=== PATIENT | male | born 1930 | race Caucasian/White ===

== ENCOUNTER 2017-11-24 01:12 | Emergency (ER) | payer MEDICARE, OTHER ==
[2017-11-24 02:10] LABS: #Eosinphils 0.2 thou/uL (0.0-0.7); #Lymphocytes 1.7 thou/uL (1.20-3.40); #Monocytes 0.7 thou/uL (0.11-0.59); #Neutrophils 8.5 thou/uL (1.40-6.50); %Basophils 0.3 % (0.0-1.0); %Eosinophils 1.9 % (0.0-10.0); %Lymphocytes 15.1 % (21.0-51.0); %Monocytes 6.1 % (0.0-10.0); %Neutrophils 76.5 % (42.0-75.0); Hemoglobin 15.7 g/dL (14.0-18.0); Mean Corpuscular HGB CONC 33.8 g/dL (32.0-36.0); Mean Corpuscular Hemoglobin 30.9 pg (27.0-31.0); Mean Corpuscular Volume 91.4 fL (78.0-98.0); Mean Platelet Volume 7.2 fL (7.4-10.4); Platelet Count 158 thou/uL (130-400); RBC Distribution Width 13.8 % (11.5-14.5); Red Blood Cell (RBC) Count 5.09 mill/uL (4.70-6.10); White Blood Cell (WBC) Count 11.1 thou/uL (4.8-10.8)
[2017-11-24 02:32] LABS: ALT (SGPT) 13 U/L (8-55); AST (SGOT) 14 U/L (5-34); Albumin 3.6 g/dL (3.4-4.8); Alkaline Phosphatase 80 U/L (40-150); Anion Gap 14 mmol/L (10-20); BUN (Urea Nitrogen) 31 mg/dL (8.4-25.7); Bilirubin, Total 0.6 mg/dL (0.2-1.2); Calc. Creatinine Clearance 0 mL/min (70-130); Calcium 9.2 mg/dL (7.8-10.44); Carbon Dioxide 21 mmol/L (23-31); Chloride 105 mmol/L (98-107); Estimated GFR-MDRD 50; Globulin 2.9 g/dL (2.4-3.5); Glucose 196 mg/dL (83-110); Potassium 3.6 mmol/L (3.5-5.1); Protein, Total 6.5 g/dL (5.8-8.1); Sodium 136 mmol/L (136-145)
[2017-11-24] MEDS ORDERED: hydrALAZINE 20 MG/ML VIAL ONE (02:32)
[2017-11-24 02:34] LABS: CKMB 2.5 ng/mL (0-6.6); Troponin I 0.024 ng/mL (< 0.028)
--- NOTE | 2017-11-26 12:09 | EKG ---
Test Reason : Blood Pressure : / mmHG Vent. Rate : 048 BPM Atrial Rate : 048 BPM P-R Int : 188 ms QRS Dur : 092 ms QT Int : 434 ms P-R-T Axes : 055 -14 069 degrees QTc Int : 387 ms Marked sinus bradycardia Abnormal ECG Confirmed by JOSSE NUNN ([id number]), photographic editor AMBAR TORRE ([id number]) on 11/26/2017 12:09:27 PM Referred By: Confirmed By:JOSSE NUNN
== END 2017-11-24 05:13 | disposition home or self-care (01) ==
LOC: ERS 01:12
DX: I10 Essential (primary) hypertension (principal); I25.10 Atherosclerotic heart disease of native coronary artery without angina pectoris; E11.9 Type 2 diabetes mellitus without complications; E78.5 Hyperlipidemia, unspecified; Z79.899 Other long term (current) drug therapy
CPT/HCPCS: 36415; 80053; 82553; 83880; 84484; 85025; 93005; 96374; 96376; J0360

== ENCOUNTER 2019-04-08 09:25 | Inpatient (IN) | payer MEDICARE ==
[2019-04-08 10:26] LABS: Bacteria/HPF 4+ HPF (None Seen); Bilirubin Negative (Negative); Blood, Urine 2+ (Negative); Clarity Turbid (Clear); Glucose, Urine (Dipstick) Normal (Negative); Leukocyte 500 Leu/uL (Negative); Nitrite 1+ (Negative); Protein, Urine (Dipstick) 30 mg/dL (Neg-Trace); RBC/HPF 21-50 HPF (0-3); Squamous Epithelial 0-3 HPF (0-3); Urobilinogen Normal mg/dL (Less than 2); WBC/HPF Greater than 50 HPF (0-3)
[2019-04-08 11:05] LABS: Band 2 % (5-11); Hemoglobin 14.8 g/dL (14.0-18.0); Lymphocytes 4 % (21-51); MDiff Complete? YES; Mean Corpuscular HGB CONC 32.4 g/dL (32.0-36.0); Mean Corpuscular Hemoglobin 30.3 pg (27.0-31.0); Mean Corpuscular Volume 93.5 fL (78.0-98.0); Mean Platelet Volume 7.4 fL (7.4-10.4); Monocytes 4 % (0-10); Neutrophil 89 % (42-75); Platelet Count 243 thou/uL (130-400); RBC Distribution Width 13.5 % (11.5-14.5); Red Blood Cell (RBC) Count 4.89 mill/uL (4.70-6.10); White Blood Cell (WBC) Count 21.2 thou/uL (4.8-10.8)
[2019-04-08] MEDS ORDERED: Piperacillin/Tazobactam 4.5 GM VIAL ONE (11:22)
--- NOTE | 2019-04-08 11:33 | ULT ---
US Testicular W Doppler HISTORY: Left-sided testicular pain. COMPARISON: None. FINDINGS: Real-time imaging of the right and left testes were performed. The right testicle measures 2.6 cm and the left testicle 3.1 cm in size. There are small calcifications associated with both testes suggestive of testicular microlithiasis. No testicular mass. There is a complex fluid collecti on which is mainly medial to the left testicle, this could represent a complex hydrocele but is somewhat unusual in location for this. The right epididymis is normal in appearance. The head of the left epididymis appears normal. Along t he inferior margin of the left testicle is soft tissue density with increased flow. I think it is unlikely that this would represent the tail of the epididymis, given the normal appearance of the hea d region. Although it does not peristalse I am concerned this is possibly a hernia. Doppler evaluation with spectral analysis: Normal flow shown to both testes and head of epididymal re gions. IMPRESSION: 1. No evidence of testicular torsion. 2. There is a complex fluid collection which is mainly medial to the left testicle but probably still represents a complex left hydrocele. 3. Soft tissue density which is inferior to the left testicle and shows increased flow. Although no p eristalsis is seen I am concerned that this may indicate that there is a hernia. I would suggest a CT of the pelvis could be performed for assessment, this should extend low enough to include the enti re testicle region.
[2019-04-08 11:37] LABS: Anion Gap 11 mmol/L (10-20); BUN (Urea Nitrogen) 32 mg/dL (8.4-25.7); Calc. Creatinine Clearance 0 mL/min (70-130); Calcium 8.8 mg/dL (7.8-10.44); Carbon Dioxide 22 mmol/L (23-31); Chloride 108 mmol/L (98-107); Estimated GFR-MDRD 52; Glucose 178 mg/dL (83-110); Potassium 3.9 mmol/L (3.5-5.1); Sodium 137 mmol/L (136-145)
[2019-04-08] MEDS ORDERED: Morphine 4 MG/ML VIAL SLOW IVP PRN (12:01)
[2019-04-08] MEDS ORDERED: Mag-Al 1200 mg/1200 mg/30 ML UDCUP PO PRN (12:01)
[2019-04-08] MEDS ORDERED: Morphine 2 MG/ML SYRINGE SLOW IVP PRN (12:01)
[2019-04-08] MEDS ORDERED: Phenazopyridine HCl 97.5 MG TABLET PO PRN (12:01)
[2019-04-08] MEDS ORDERED: HYDROcodone/Acetaminophen 5/325 mg Tablet PO PRN (12:01)
[2019-04-08] MEDS ORDERED: Dextrose 50 % In Water 50 ML SYRINGE IV PRN (12:04)
[2019-04-08] MEDS ORDERED: Insulin Regular 300 UNITS/3 ML VIAL SC PRN (12:04)
[2019-04-08] MEDS ORDERED: Dextrose 5% in Water 1,000 ML IV PRN ×2 (12:04→14:38)
[2019-04-08] MEDS ORDERED: Sodium Chloride 0.9% 1,000 ML IV SCH (12:15)
[2019-04-08 12:43] LABS: Hemoglobin A1c 8.6 % (4.0-6.0)
--- NOTE | 2019-04-08 13:59 | CON ---
DATE OF CONSULTATION: 04/08/2019 REFERRING PHYSICIAN: Dr. Lynch with hospitalist regarding left epididymo-orchitis. REASON FOR CONSULTATION: Left epididymo-orchitis, dysuria. HISTORY OF PRESENT ILLNESS: Mr. De La Cruz is a pleasant 88-year-old male with history of hypertension, diabetes, coronary artery disease, who presents with 1- week history of dysuria. He states that this was treated by his PCP with an antibiotic that is unknown. He did have improvement of his dysuria, however, after cessation of antibiotic therapy, dysuria recurred. Subsequently, he developed left scrotal swelling, therefore presents to the emergency room. Son apparently was at bedside, however, no longer present. The patient is a reliable historian, provides his own subjective history. He denies obvious obstructive urinary symptoms, however, of the recent, he has had worsening nocturia every 30 minutes. He denies sensation of incomplete void or gross hematuria, prior urologic assessment. He is retired, lives in a private residence with his son. PAST MEDICAL HISTORY: Includes coronary artery disease, status post cardiac stent, diabetes in which his most recent A1c was 8.4 with his PCP, hyperlipidemia, hypertension. 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 Psychiatric, none. SOCIAL HISTORY: Negative. REVIEW OF SYSTEMS: A 10-point review of systems as above, otherwise noncontributory. PHYSICAL EXAMINATION: VITAL SIGNS: Blood pressure 120/66, pulse 121, respirations 22, temperature 98.8, appears hemodynamically stable. GENERAL: The patient is in no acute distress. HEENT: Unremarkable. HEART: Regular rate. LUNGS: Clear. ABDOMEN: Morbidly obese, right upper quadrant incision consistent with open cholecystectomy. Morbidly obese. No suprapubic tenderness is grossly appreciated. : Uncircumcised meatus, in which foreskin retracts easily, there are no gross lesions of concern. Evidence of some balanitis, however, foreskin retracts with ease. Meatus is grossly unremarkable. Testes are descended. There is hyperemia/erythema of his scrotal skin bilaterally, left greater than right, consistent with epididymo-orchitis. There is no fluctuance, mild pitting edema is noted. Tender on palpation, mild fixation of the testes, however, this is minimal. Digital rectal exam gently demonstrates SUN about 35 to 40 g with no discrete nodularity. EXTREMITIES: No cyanosis, clubbing, or edema. I did have the patient void, in which he voided about 300 mL of yellow concentrated urine. A 16-Cymro Johnson catheter was gently passed without any resistance with minimal PVR of 50 mL, which the urine does demonstrate some sedimentous debris consistent with cystitis. PERTINENT LABORATORY AND IMAGING: White count of 21, hemoglobin 14, platelet 243, 89 segs, no significant bandemia. In 2016, his INR was 2.2, PTT of 40.4. Today , his creatinine is 1.3, prior history of creatinine in 2013, 1.8. UA on arrival demonstrates yellow turbid urine, 30 of protein, 2+ bacteria, 1+ nitrite, 500 leukocytes, 21 to 50 rbc's, greater than 50 wbc, 0 to 3 epithelials, 4+ bacteria. Urine culture and blood culture obtained by the ER. Vancomycin and Zosyn provided by ER physician. Scrotal ultrasound: No evidence of testicular torsion. Complex fluid medial aspect of the left testes consistent with complex hydrocele. Possibility of hernia of this area. I did review the images myself as well as discussing results with radiologist of record. No evidence of scrotal testicular abscess. As physical exam demonstrates no evidence of inguinal hernia, CT of the pelvis is not recommended. IMPRESSION AND PLAN: Mr. De La Cruz is an 88-year-old morbidly obese male with history of diabetes, hypertension, coronary artery disease, hyperlipidemia, presents with urinary tract infection, left epididymo-orchitis, scrotal ultrasound which I reviewed myself demonstrates no evidence of torsion, complex fluid collection in the left testicle, there was concern that maybe this is a hernia. However, physical exam does not demonstrate evidence of inguinal hernia of concern, it is likely a complex hydrocele. Nevertheless, the treatment is same with broad-spectrum antibiotic therapy until culture can be finalized. Recommend Flomax 0.4 mg one p.o. daily, aggressive IV fluid, strict control of his diabetes is imperative. The patient to be admitted to the medical floor. will follow. Job ID: [id number] [facility]
[2019-04-08] MEDS ORDERED: Ondansetron PF 4 MG/2 ML Vial IVP PRN (14:38)
[2019-04-08] MEDS ORDERED: Acetaminophen 325 MG TAB PO PRN (14:38)
[2019-04-08] MEDS ORDERED: Dextrose 50% Abboject 50 ML SYRINGE SLOW IVP PRN (14:38)
[2019-04-08] MEDS ORDERED: HumaLOG 300 UNITS/3 ML VIAL SC PRN ×2 (14:38)
[2019-04-08] MEDS ORDERED: Guaifenesin DM 100-10/5 ML UDCUP PO PRN (14:38)
[2019-04-08] MEDS ORDERED: Bisacodyl 10 MG SUPP PR PRN (14:38)
[2019-04-08] MEDS ORDERED: Senokot S 8.6-50 MG TAB PO PRN (14:38)
[2019-04-08] MEDS: Sodium Chloride 0.9% 1,000 ML IV SCH (14:56)
--- NOTE | 2019-04-08 15:14 | HP ---
REASON FOR ADMISSION: Left epididymo-orchitis, acute kidney injury, sepsis. HISTORY OF PRESENTING ILLNESS: The patient gives history of being treated for urinary tract infection 2-1/2 weeks ago. He was prescribed an antibiotic by Dr. Esposito, his primary care physician at [facility]. He took it for a week and felt better. From last 3 days, the patient started to have burning urination. On , he felt like his left testicle was feeling funny. On Tuesday and Tuesday, this got swollen, became painful with pain radiating to left thigh as well. It also became pink, and the patient got concerned that he was getting infected and summoned the EMS to come to ER. No fever as such at home. The patient says he has not had this before. PAST MEDICAL AND SURGICAL HISTORY: History of coronary artery disease with 1 or 2 stents. The patient does not recall the exact number. In the past, diabetes mellitus type 2, hypertension, dyslipidemia, amputation of right upper extremity up to above elbow in an industrial accident, appendectomy, cholecystectomy. CURRENT MEDICATIONS: Please note, the patient does not recall all his medication. He knows he is taking glipizide unknown dose, Trulicity which was recently started for diabetes, unknown hypertension medication, simvastatin. His son is trying to bring his home medications, and will follow up on that. ALLERGIES: NO KNOWN DRUG ALLERGIES. PERSONAL HISTORY: Does not abuse alcohol or drugs. No history of smoking. FAMILY HISTORY: Mother at the age of 62. She has had history of aneurysm. Father at the age of 76 years. He has had history of one lung chronic kidney disease and developed pneumonia, went into coma and never recovered. The patient stays with his son. He ambulates by himself. CODE STATUS: The patient wants to be do not attempt to resuscitate. His POA is his daughter, Ms. Shobha Buenrostro, per the patient. REVIEW OF SYSTEMS: CONSTITUTIONAL: Negative for weight loss or gain, ability to conduct usual activities. SKIN: Negative for rash, itching. EYES: Negative for double vision, pain. ENT/MOUTH: Negative for nose bleeding, neck stiffness, pain, tenderness. CARDIOVASCULAR: Negative for palpitations, dyspnea on exertion, orthopnea. RESPIRATORY: Negative for shortness of breath, wheezing, cough, hemoptysis, fever or night sweats. GASTROINTESTINAL: Negative for poor appetite, abdominal pain, heartburn, nausea, vomiting, constipation, or diarrhea. GENITOURINARY: Negative for urgency, frequency, dysuria, nocturia. MUSCULOSKELETAL: Negative for pain, swelling. NEUROLOGIC/PSYCHIATRIC: Negative for anxiety, depression. ALLERGY/IMMUNOLOGIC: Negative for skin rash, bleeding tendency. PHYSICAL EXAMINATION: GENERAL: The patient is an 88-year-old male, who is currently not in any acute distress. VITAL SIGNS: Blood pressure 126/66, pulse 120 per minute, respiratory rate 22 per minute, temperature 98.8 degrees Fahrenheit, saturating 96% on room air. NECK: Supple. No elevated JVD. HEENT: Eyes; extraocular muscles intact. Pupils reacting to light. Oral cavity, mucous membranes are dry. No exudates or congestion. CARDIOVASCULAR: S1 and S2 heard. Regular rhythm. RESPIRATORY: Air entry 1+ bilateral. No rales or rhonchi. ABDOMEN: Soft. Bowel sounds heard. No tenderness, rigidity, or guarding. : The patient has severe tenderness on elevating the testicles or the scrotal back. His scrotum is erythematous, has edema as well. EXTREMITIES: Lower extremity has 1+ peripheral edema. No calf tenderness. VASCULAR: Peripheral pulses 1+ bilateral. No ischemic ulcerations or gangrene. CENTRAL NERVOUS SYSTEM: No gross focal deficits noted. The patient is alert, awake, and oriented well. PSYCHIATRIC: The patient's mood is euthymic. No hallucinations or delusions. IMAGING STUDIES: Scrotal ultrasound done showed no evidence of testicular torsion. There is complex fluid collection, which is medial to the left testicle and probably represents complex left hydrocele. There is soft tissue density, which is inferior to the left testicle and shows increased flow. There is possible suspicion of this being a hernia. LABORATORY DATA: UA shows signs of UTI. HbA1c 8.6. Lactic acid 1.2. BUN 32, creatinine 1.3, serum glucose 178, serum bicarb 22. White count of 21, H and H 14 and 45, platelet count 243, with 89% neutrophils, 2% bands. CLINICAL IMPRESSION AND PLAN: The patient will be admitted to medical floor for sepsis, epididymo-orchitis. The patient will be gently hydrated with normal saline at 100 mL per hour. Blood and urine cultures have been obtained in the ER. He has been placed on vancomycin and Zosyn. Dr. Hilario has evaluated the patient in the ER. He is also on Flomax 0.4 mg daily. We will continue him on a low-dose Zocor, low-dose Lopressor, glipizide 5 mg twice daily, and regular insulin moderate sliding scale for now. We will ascertain his home medications and likely start them. He is also on Azo q.8 hourly p.r.n. for burning urination. Morphine and [place] p.r.n. for pain. We will continue to closely monitor him on medical floor. PT and OT evaluations will be requested for early ambulation. Job ID: [id number]
[2019-04-08 15:30] VITALS: BMI 34.3
[2019-04-08] MEDS ORDERED: Prevnar 13-Val Conj/PF 0.5 ML SYRINGE IM ONE (16:00)
[2019-04-08] MEDS: glipiZIDE 5 MG TAB PO SCH (16:09)
[2019-04-08] MEDS: Piperacillin/Tazobactam 3.375 GM in Sodium Chloride 0.9% 100 ML IVPB SCH (16:56)
[2019-04-08] MEDS: HYDROcodone/Acetaminophen 5/325 mg Tablet PO PRN (16:56)
[2019-04-08] MEDS: Metoprolol Tartrate 25 MG TAB PO SCH (21:00)
[2019-04-08] MEDS ORDERED: Vancomycin HCl 1 GM in Premix Bag 1 BAG IVPB SCH (21:00)
[2019-04-08] MEDS: Atorvastatin Calcium 10 MG TAB PO SCH (22:24)
[2019-04-08] MEDS: Docusate 100 MG CAP PO SCH (22:24)
[2019-04-08] MEDS: Famotidine 20 MG TAB PO SCH (22:24)
[2019-04-09] MEDS: Piperacillin/Tazobactam 3.375 GM in Sodium Chloride 0.9% 100 ML IVPB SCH ×5 (00:55→23:37)
[2019-04-09] MEDS: Sodium Chloride 0.9% 1,000 ML IV SCH ×2 (01:06→10:58)
[2019-04-09 06:01] LABS: #Eosinphils 0.1 thou/uL (0.0-0.7); #Lymphocytes 1.1 thou/uL (1.20-3.40); #Neutrophils 13.8 thou/uL (1.40-6.50); %Basophils 0.3 % (0.0-1.0); %Eosinophils 0.6 % (0.0-10.0); %Lymphocytes 6.8 % (21.0-51.0); %Monocytes 5.9 % (0.0-10.0); %Neutrophils 86.4 % (42.0-75.0); Hemoglobin 13.5 g/dL (14.0-18.0); Mean Corpuscular HGB CONC 31.9 g/dL (32.0-36.0); Mean Corpuscular Hemoglobin 30.3 pg (27.0-31.0); Mean Corpuscular Volume 95.1 fL (78.0-98.0); Mean Platelet Volume 7.4 fL (7.4-10.4); Platelet Count 205 thou/uL (130-400); RBC Distribution Width 13.5 % (11.5-14.5); Red Blood Cell (RBC) Count 4.44 mill/uL (4.70-6.10)
[2019-04-09 06:21] LABS: Anion Gap 11 mmol/L (10-20); BUN (Urea Nitrogen) 26 mg/dL (8.4-25.7); Calc. Creatinine Clearance 61 mL/min (70-130); Calcium 8.4 mg/dL (7.8-10.44); Carbon Dioxide 18 mmol/L (23-31); Chloride 112 mmol/L (98-107); Estimated GFR-MDRD 54; Glucose 184 mg/dL (83-110); Potassium 3.9 mmol/L (3.5-5.1); Sodium 137 mmol/L (136-145)
--- NOTE | 2019-04-09 07:19 | PRG ---
DATE OF SERVICE: 04/09/2019 SUBJECTIVE: Relates, he is feeling better, dysuria has improved. However, he continues to have scrotal discomfort as expected. Vital signs are stable. He is afebrile. On rounds, he appears to have some wheezing. Denies history of COPD or chest pain. Currently on Zosyn and vancomycin. OBJECTIVE: VITAL SIGNS: Afebrile, temperature 97.7, pulse 77, respiratory rate 20, oxygen saturation 97% on room air, and blood pressure is stable at 119/72. I's and O's; 1300 in, 350 of urine out. He is positive 950 mL. ABDOMEN: Morbidly obese, nontender, and nondistended. No CVA tenderness. GENITOURINARY: Stable exam. He does have continuing erythema of the scrotal skin consistent with epididymo-orchitis. Pitting edema is noted. However, no gross fluctuance or crepitus is appreciated. PERTINENT LABORATORY DATA: White count has decreased from 21,000 to 16,000, hemoglobin 13, platelet 205, segs 86, no significant bandemia. Renal function stable. Creatinine 1.2. Cultures are pending. IMPRESSION AND PLAN: 1. Mr. De La Cruz is an 88-year-old male with past medical history of coronary artery disease, diabetes, hyperlipidemia, who presents with urinary tract infection, left epididymo-orchitis. His leukocytosis improved with antibiotic therapy as dysuria is improved as well. I informed the patient that epididymo-orchitis takes couple of weeks for scrotal discomfort to resolve. Continue to monitor daily CBCs, follow up blood culture and urine culture results. When sensitivity finalized, we will transition to appropriate antibiotic regimen as an outpatient. 2. Intermittent wheezing, please check a PA and lateral chest x-ray. If needed, albuterol nebs would be prudent. Elevate scrotum while in bed. Job ID: [id number] [facility]
[2019-04-09] MEDS: Tamsulosin HCl 0.4 MG CAP PO SCH (08:08)
[2019-04-09] MEDS: glipiZIDE 5 MG TAB PO SCH (08:08)
[2019-04-09] MEDS: Docusate 100 MG CAP PO SCH ×2 (08:08→20:22)
[2019-04-09] MEDS: Metoprolol Tartrate 25 MG TAB PO SCH ×2 (08:09→20:22)
[2019-04-09] MEDS: Enoxaparin Sodium 40 MG/0.4 ML SYRINGE SC SCH (08:09)
[2019-04-09] MEDS: Famotidine 20 MG TAB PO SCH ×2 (08:10→20:22)
--- NOTE | 2019-04-09 10:23 | RAD ---
PA AND LATERAL VIEWS CHEST: Date: 04/09/19 HISTORY: Wheezing. FINDINGS/IMPRESSION: Comparison made with exam of 02/17/14. The heart size is mildly enlarged. There is mild prominence of the interstitial markings. No lobar co nsolidation, pneumothoraces, or pleural effusions are seen. There are degenerative changes in the spi ne. POS: [facility]
[2019-04-09] MEDS ORDERED: Vancomycin 1.5 GRAM/300 ML BAG 1.5 GM in Premix Bag 1 BAG IVPB SCH (12:00)
--- NOTE | 2019-04-09 16:27 | PDOC.HOSPP ---
- Subjective Encounter Date: 04/09/19 Encounter Time: 09:30 Subjective: feels better, still has pain in scrotal area has not ambulated yet - Objective Vital Signs & Weight: Vital Signs (12 hours) Temp Pulse Resp BP Pulse Ox 04/09/19 11:34 98.1 F 81 18 153/82 H 95 04/09/19 08:00 95 04/09/19 07:39 97.9 F 106 H 20 144/82 H 95 Weight Weight 225 lb 15.581 oz I&O: 04/08/19 04/09/19 04/10/19 06:59 06:59 06:59 Intake Total 1300 600 Output Total 350 Balance 950 600 Result Diagrams: 04/09/19 05:44 04/09/19 05:44 Additional Labs: Accuchecks 04/09/19 04/09/19 04/08/19 11:34 04:36 19:47 POC Glucose 290 H 167 H 234 H 04/08/19 15:53 POC Glucose 273 H Hospitalist ROS - Medication Medications: Active Medications Generic Name Dose Route Start Last Admin Trade Name Freq PRN Reason Stop Dose Admin Hydrocodone Bitart/Acetaminophen 2 tab 04/08/19 12:01 04/08/19 16:56 [place] 5/325 PO 2 tab Q4H PRN Administration Severe Pain (7-10) Atorvastatin Calcium 10 mg 04/08/19 21:00 04/08/19 22:24 Lipitor PO 10 mg HS JOSE Administration Docusate Sodium 100 mg 04/08/19 21:00 04/09/19 08:08 Colace PO 100 mg BID JOSE Administration Enoxaparin Sodium 40 mg 04/09/19 09:00 04/09/19 08:09 Lovenox SC 40 mg 0900 JOSE Administration Famotidine 20 mg 04/08/19 21:00 04/09/19 08:10 Pepcid PO 20 mg BID JOSE Administration Piperacillin Sod/Tazobactam 100 mls @ 200 mls/hr 04/08/19 18:00 04/09/19 11: 02 Sod 3.375 gm/ Sodium Chloride IVPB 100 mls Q6HR JOSE Administration Insulin Human Lispro 0 units 04/08/19 14:38 04/08/19 16:09 Humalog SC 6 unit .MODERATE SLIDING SC PRN Administration Moderate Correctional Scale Metoprolol Tartrate 12.5 mg 04/08/19 21:00 04/09/19 08:09 Lopressor PO 12.5 mg BID JOSE Administration Phenazopyridine HCl 195 mg 04/08/19 12:01 04/08/19 16:58 Azo Standard PO 195 mg Q8H PRN Administration Dysuria Tamsulosin HCl 0.4 mg 04/09/19 09:00 04/09/19 08:08 Flomax PO 0.4 mg DAILY JOSE Administration - Exam General Appearance: awake alert Eye: PERRL, anicteric sclera ENT: no oropharyngeal lesions, moist mucosa Neck: supple, no JVD Heart: RRR, no murmur Respiratory: no wheezes, no rales, rhonchi Gastrointestinal: soft, non-tender, non-distended, normal bowel sounds Gastrointestinal - other findings: scrotal edema and erythema+ Extremities: no cyanosis, no edema Neurological: cranial nerve grossly intact, no focal deficits Psychiatric: normal affect, A&O x 3 Hosp A/P (1) Orchitis and epididymitis Code(s): N45.3 - EPIDIDYMO-ORCHITIS Status: Acute (2) Sepsis Code(s): A41.9 - SEPSIS, UNSPECIFIED ORGANISM Status: Acute Qualifiers: Sepsis type: Escherichia coli (3) UTI (urinary tract infection) Status: Acute Qualifiers: Urinary tract infection type: acute cystitis Hematuria presence: with hematuria Qualified Code(s): N30.01 - Acute cystitis with hematuria (4) HTN (hypertension) Code(s): I10 - ESSENTIAL (PRIMARY) HYPERTENSION Status: Chronic Qualifiers: Hypertension type: essential hypertension Qualified Code(s): I10 - Essential (primary) hypertension (5) CAD (coronary artery disease) Code(s): I25.10 - ATHSCL HEART DISEASE OF [place] CORONARY ARTERY W/O ANG PCTRS Status: Chronic Qualifiers: Coronary Disease-Associated Artery/Lesion type: [place] artery [place] vs. transplanted heart: [place] heart Associated angina: without angina Qualified Code(s): I25.10 - Atherosclerotic heart disease of [place] coronary artery without angina pectoris (6) DM type 2 (diabetes mellitus, type 2) Status: Chronic Qualifiers: Diabetes mellitus loan examiner insulin use: without loan examiner use (7) Dyslipidemia Code(s): E78.5 - HYPERLIPIDEMIA, UNSPECIFIED Status: Chronic (8) Obesity (BMI 30.0-34.9) Code(s): E66.9 - OBESITY, UNSPECIFIED Status: Chronic - Plan is on zosyn, dc vanc, prelim urine cultures are growing e.coli, blood cs x2 -ve dc iv fluids, echo pending, bnp in am to ambulate with PT as tolerated in hallway continue asp, flomax, lopressor, lipitor, trulicity, glipizide hemostable wbc down to 16k now.
[2019-04-09] MEDS ORDERED: glipiZIDE 10 MG TAB PO SCH (17:15)
[2019-04-09] MEDS: Atorvastatin Calcium 10 MG TAB PO SCH (20:22)
[2019-04-09] MEDS: Allopurinol 100 MG TAB PO SCH (20:22)
[2019-04-09] MEDS ORDERED: Non-Formulary Item 1 EACH (Simvastatin [Zocor] 10 MG) PO SCH (21:00)
[2019-04-10] MEDS: HYDROcodone/Acetaminophen 5/325 mg Tablet PO PRN (00:58)
[2019-04-10] MEDS: Piperacillin/Tazobactam 3.375 GM in Sodium Chloride 0.9% 100 ML IVPB SCH ×3 (05:16→18:00)
[2019-04-10 06:22] LABS: #Eosinphils 0.2 thou/uL (0.0-0.7); #Lymphocytes 1.2 thou/uL (1.20-3.40); #Monocytes 0.8 thou/uL (0.11-0.59); #Neutrophils 9.3 thou/uL (1.40-6.50); %Basophils 0.4 % (0.0-1.0); %Eosinophils 1.5 % (0.0-10.0); %Lymphocytes 10.6 % (21.0-51.0); %Monocytes 6.6 % (0.0-10.0); %Neutrophils 80.8 % (42.0-75.0); Hemoglobin 12.5 g/dL (14.0-18.0); Mean Corpuscular HGB CONC 32.3 g/dL (32.0-36.0); Mean Corpuscular Hemoglobin 30.6 pg (27.0-31.0); Mean Corpuscular Volume 94.7 fL (78.0-98.0); Mean Platelet Volume 7.3 fL (7.4-10.4); Platelet Count 195 thou/uL (130-400); RBC Distribution Width 13.4 % (11.5-14.5); Red Blood Cell (RBC) Count 4.09 mill/uL (4.70-6.10); White Blood Cell (WBC) Count 11.5 thou/uL (4.8-10.8)
[2019-04-10 07:28] LABS: Anion Gap 20 mmol/L (10-20); BUN (Urea Nitrogen) 19 mg/dL (8.4-25.7); Calc. Creatinine Clearance 73 mL/min (70-130); Calcium 7.3 mg/dL (7.8-10.44); Carbon Dioxide 17 mmol/L (23-31); Chloride 112 mmol/L (98-107); Estimated GFR-MDRD 67; Glucose 115 mg/dL (83-110); Potassium 3.2 mmol/L (3.5-5.1); Sodium 146 mmol/L (136-145)
[2019-04-10] MEDS: Allopurinol 100 MG TAB PO SCH ×2 (08:05→22:15)
[2019-04-10] MEDS: Tamsulosin HCl 0.4 MG CAP PO SCH (08:06)
[2019-04-10] MEDS: Metoprolol Tartrate 25 MG TAB PO SCH ×2 (08:06→22:16)
[2019-04-10] MEDS: Furosemide 20 MG TAB PO SCH (08:06)
[2019-04-10] MEDS: Magnesium Oxide 400 MG TAB PO SCH (08:06)
[2019-04-10] MEDS: Aspirin 81 mg Enteric Coated Tablet PO SCH (08:06)
[2019-04-10] MEDS: Docusate 100 MG CAP PO SCH ×2 (08:06→22:15)
[2019-04-10] MEDS: Losartan 25 MG TAB PO SCH (08:06)
[2019-04-10] MEDS: glipiZIDE 10 MG TAB PO SCH ×2 (08:06→16:46)
[2019-04-10] MEDS: Famotidine 20 MG TAB PO SCH ×2 (08:06→22:15)
[2019-04-10] MEDS: Isosorbide Mononitrate (ER) 30 MG TAB PO SCH (08:06)
[2019-04-10] MEDS: Enoxaparin Sodium 40 MG/0.4 ML SYRINGE SC SCH (08:09)
--- NOTE | 2019-04-10 08:13 | PRG ---
DATE OF SERVICE: 04/10/2019 SUBJECTIVE: The patient states that his dysuria has significantly improved significantly improved. Continues to have scrotal discomfort, however, this is improved. Scrotal discomfort is only significant with palpation and mobility. OBJECTIVE: VITAL SIGNS: Stable. I's and O's; 960 of urine output. Denies sensation of incomplete void. ABDOMEN: Soft, nontender, and nondistended. GENITOURINARY: Scrotal exam as previous, demonstrates scrotal erythema with fixation of the left scrotum consistent with epididymitis. There is epididymo-orchitis. There is pitting edema with no gross crepitus. He does have tenderness on exam. IMAGING: Chest x-ray demonstrates mild fluid overload. Echocardiogram obtained by hospitalist demonstrating EF of 55% to 60%. PERTINENT LABORATORY DATA: White count on admission is 21, currently 11; hemoglobin 12; platelet 195; 80 of segs. Renal function is 1.0. Blood sugars running in the high 160s to 270s. Hemoglobin A1c on this admission is 8.6. IMPRESSION AND PLAN: Mr. De La Cruz is a pleasant 88-year-old male admitted for left epididymo-orchitis. Culture demonstrating Escherichia coli, pansensitive to Macrobid. Currently on Zosyn. Agree vancomycin was discontinued. His scrotal exam continues to have erythema, edema consistent with epididymo-orchitis. This will persist for couple of weeks as course of epididymo-orchitis takes couple of weeks to resolve. Continue IV antibiotics for now. Clinically is improving. Recheck CBC tomorrow. If he continues to improve, anticipate the patient can be discharged in the next 24 to 48 hours. Continue Flomax. Elevate scrotum while in bed. Strict control of his diabetes is advised as recent A1c demonstrates elevation to 8.6. Continue IV Zosyn. Outpatient Levaquin 750 for minimum 4 weeks advised. Job ID: [id number] [facility]
--- NOTE | 2019-04-10 16:13 | PDOC.HOSPP ---
- Subjective Encounter Date: 04/10/19 Encounter Time: 09:45 Subjective: no sob, is amb in room scrotal area pain is better - Objective Vital Signs & Weight: Vital Signs (12 hours) Temp Pulse Resp BP Pulse Ox 04/10/19 08:00 97 04/10/19 07:55 97.4 F L 79 20 147/83 H 97 Weight Weight 225 lb 15.581 oz I&O: 04/09/19 04/10/19 04/11/19 06:59 06:59 06:59 Intake Total 1300 960 480 Output Total 350 Balance 950 960 480 Result Diagrams: 04/10/19 05:40 04/10/19 05:40 Additional Labs: Accuchecks 04/10/19 04/10/19 04/09/19 11:37 05:07 20:17 POC Glucose 193 H 137 H 187 H 04/09/19 17:05 POC Glucose 186 H Hospitalist ROS - Medication Medications: Active Medications Generic Name Dose Route Start Last Admin Trade Name Freq PRN Reason Stop Dose Admin Hydrocodone Bitart/Acetaminophen 1 tab 04/08/19 12:01 04/10/19 12:54 [place] 5/325 PO 1 tab Q4H PRN Administration Moderate Pain (4-6) Hydrocodone Bitart/Acetaminophen 2 tab 04/08/19 12:01 04/10/19 00:58 [place] 5/325 PO 2 tab Q4H PRN Administration Severe Pain (7-10) Allopurinol 100 mg 04/09/19 21:00 04/10/19 08:05 Zyloprim PO 100 mg BID JOSE Administration Aspirin 81 mg 04/10/19 09:00 04/10/19 08:06 Ecotrin PO 81 mg DAILY JOSE Administration Atorvastatin Calcium 10 mg 04/08/19 21:00 04/09/19 20:22 Lipitor PO 10 mg HS JOSE Administration Docusate Sodium 100 mg 04/08/19 21:00 04/10/19 08:06 Colace PO 100 mg BID JOSE Administration Enoxaparin Sodium 40 mg 04/09/19 09:00 04/10/19 08:09 Lovenox SC 40 mg 0900 JOSE Administration Famotidine 20 mg 04/08/19 21:00 04/10/19 08:06 Pepcid PO 20 mg BID JOSE Administration Furosemide 20 mg 04/10/19 09:00 04/10/19 08:06 Lasix PO 20 mg DAILY JOSE Administration Glipizide 10 mg 04/10/19 07:30 04/10/19 08:06 Glucotrol PO 10 mg BID-AC JOSE Administration Piperacillin Sod/Tazobactam 100 mls @ 200 mls/hr 04/08/19 18:00 04/10/19 11: 26 Sod 3.375 gm/ Sodium Chloride IVPB 100 mls Q6HR JOSE Administration Insulin Human Lispro 0 units 04/08/19 14:38 04/08/19 16:09 Humalog SC 6 unit .MODERATE SLIDING SC PRN Administration Moderate Correctional Scale Isosorbide Mononitrate 30 mg 04/10/19 09:00 04/10/19 08:06 Imdur Er PO 30 mg DAILY JOSE Administration Losartan Potassium 25 mg 04/10/19 09:00 04/10/19 08:06 Cozaar PO 25 mg DAILY JOSE Administration Magnesium Oxide 400 mg 04/10/19 09:00 04/10/19 08:06 Magnesium Oxide PO 400 mg DAILY JOSE Administration Metoprolol Tartrate 12.5 mg 04/08/19 21:00 04/10/19 08:06 Lopressor PO 12.5 mg BID JOSE Administration Phenazopyridine HCl 195 mg 04/08/19 12:01 04/08/19 16:58 Azo Standard PO 195 mg Q8H PRN Administration Dysuria Sodium Chloride 10 ml 04/08/19 12:05 04/10/19 08:07 Flush - Normal Saline IVF 10 ml PRN PRN Administration Saline Flush Tamsulosin HCl 0.4 mg 04/09/19 09:00 04/10/19 08:06 Flomax PO 0.4 mg DAILY JOSE Administration - Exam General Appearance: awake alert Eye: PERRL, anicteric sclera ENT: no oropharyngeal lesions, moist mucosa Neck: supple, no JVD Heart: RRR, no murmur Respiratory: no wheezes, no rales Gastrointestinal: soft, non-tender, non-distended, normal bowel sounds Gastrointestinal - other findings: scrotal edema and tenderness+ Extremities: no cyanosis, no edema Neurological: cranial nerve grossly intact, no focal deficits Psychiatric: normal affect, A&O x 3 Hosp A/P (1) Orchitis and epididymitis Code(s): N45.3 - EPIDIDYMO-ORCHITIS Status: Acute (2) Sepsis Code(s): A41.9 - SEPSIS, UNSPECIFIED ORGANISM Status: Acute Qualifiers: Sepsis type: Escherichia coli (3) UTI (urinary tract infection) Status: Acute Qualifiers: Urinary tract infection type: acute cystitis Hematuria presence: with hematuria Qualified Code(s): N30.01 - Acute cystitis with hematuria (4) HTN (hypertension) Code(s): I10 - ESSENTIAL (PRIMARY) HYPERTENSION Status: Chronic Qualifiers: Hypertension type: essential hypertension Qualified Code(s): I10 - Essential (primary) hypertension (5) CAD (coronary artery disease) Code(s): I25.10 - ATHSCL HEART DISEASE OF [place] CORONARY ARTERY W/O ANG PCTRS Status: Chronic Qualifiers: Coronary Disease-Associated Artery/Lesion type: [place] artery [place] vs. transplanted heart: [place] heart Associated angina: without angina Qualified Code(s): I25.10 - Atherosclerotic heart disease of [place] coronary artery without angina pectoris (6) DM type 2 (diabetes mellitus, type 2) Status: Chronic Qualifiers: Diabetes mellitus fdc insulin use: without moth exterminator use (7) Dyslipidemia Code(s): E78.5 - HYPERLIPIDEMIA, UNSPECIFIED Status: Chronic (8) Obesity (BMI 30.0-34.9) Code(s): E66.9 - OBESITY, UNSPECIFIED Status: Chronic - Plan is on zosyn, urine cs grew e.coli sensitive to all except macrobid, blood cs x2 -ve echo shows normal ef, mod mitral regurg, bnp is normal to ambulate with PT as tolerated in hallway continue asp, flomax, lopressor, lipitor, trulicity, glipizide hemostable likely dc plan in am on levaquin x 4 weeks per urology adv will need HH, PT and nursing on discharge
[2019-04-10] MEDS: Atorvastatin Calcium 10 MG TAB PO SCH (22:16)
[2019-04-11] MEDS: Piperacillin/Tazobactam 3.375 GM in Sodium Chloride 0.9% 100 ML IVPB SCH ×3 (00:41→11:48)
[2019-04-11 07:40] LABS: #Basophils 0.1 thou/uL (0.0-0.2); #Eosinphils 0.2 thou/uL (0.0-0.7); #Lymphocytes 1.4 thou/uL (1.20-3.40); #Monocytes 0.9 thou/uL (0.11-0.59); #Neutrophils 8.9 thou/uL (1.40-6.50); %Basophils 0.5 % (0.0-1.0); %Eosinophils 1.6 % (0.0-10.0); %Lymphocytes 12.1 % (21.0-51.0); %Monocytes 7.5 % (0.0-10.0); %Neutrophils 78.3 % (42.0-75.0); Hemoglobin 14.6 g/dL (14.0-18.0); Mean Corpuscular HGB CONC 31.9 g/dL (32.0-36.0); Mean Corpuscular Hemoglobin 30.3 pg (27.0-31.0); Mean Platelet Volume 7.3 fL (7.4-10.4); Platelet Count 242 thou/uL (130-400); RBC Distribution Width 13.4 % (11.5-14.5); Red Blood Cell (RBC) Count 4.83 mill/uL (4.70-6.10); White Blood Cell (WBC) Count 11.4 thou/uL (4.8-10.8)
[2019-04-11 07:57] LABS: Anion Gap 14 mmol/L (10-20); BUN (Urea Nitrogen) 22 mg/dL (8.4-25.7); Calc. Creatinine Clearance 60 mL/min (70-130); Calcium 9.2 mg/dL (7.8-10.44); Carbon Dioxide 22 mmol/L (23-31); Chloride 107 mmol/L (98-107); Estimated GFR-MDRD 53; Glucose 166 mg/dL (83-110); Sodium 139 mmol/L (136-145)
[2019-04-11] MEDS: glipiZIDE 10 MG TAB PO SCH (08:17)
[2019-04-11] MEDS: Aspirin 81 mg Enteric Coated Tablet PO SCH (08:19)
[2019-04-11] MEDS: Allopurinol 100 MG TAB PO SCH (08:19)
[2019-04-11] MEDS: Tamsulosin HCl 0.4 MG CAP PO SCH (08:19)
[2019-04-11] MEDS: Metoprolol Tartrate 25 MG TAB PO SCH (08:20)
[2019-04-11] MEDS: Losartan 25 MG TAB PO SCH (08:20)
[2019-04-11] MEDS: Magnesium Oxide 400 MG TAB PO SCH (08:20)
[2019-04-11] MEDS: Isosorbide Mononitrate (ER) 30 MG TAB PO SCH (08:20)
[2019-04-11] MEDS: Docusate 100 MG CAP PO SCH (08:21)
[2019-04-11] MEDS: Famotidine 20 MG TAB PO SCH (08:22)
[2019-04-11] MEDS: Enoxaparin Sodium 40 MG/0.4 ML SYRINGE SC SCH (08:22)
[2019-04-11] MEDS: Furosemide 20 MG TAB PO SCH (08:22)
--- NOTE | 2019-04-11 10:32 | PRG ---
DATE OF SERVICE: 04/11/2019 SUBJECTIVE: Dysuria resolved, continues to have scrotal discomfort mostly present with ambulation. OBJECTIVE: VITAL SIGNS: Stable. He has been afebrile since admission. ABDOMEN: Soft, nontender, and nondistended. : Scrotal erythema is improved. The testes are not fixed. However, there is an enlargement consistent with epididymo-orchitis. No crepitus noted. PERTINENT LABORATORY DATA: White count on admission 21 and currently stable at 11.4, and H and H stable. Renal function stable at 1.29. IMPRESSION AND PLAN: Mr. De La Cruz is an 88-year-old male admitted for urinary tract infection, epididymo-orchitis, responding to medical therapy. Continue IV Zosyn while in-house. His scrotal exam demonstrates improvement in his scrotal erythema. Scrotal swelling will persist for a few weeks. Elevation of scrotum is advised. I recommend the patient continue scrotal support as an outpatient. Would recommend Levaquin 750 mg one p.o. daily for four weeks. Case Management for home health agreed. Anticipate discharge either or Tuesday pending his clinical course, if he remained stable, where progression or failure with antibiotic therapy warrants orchiectomy. He appears to be responding to medication, therefore, we will observe. Continue benign prostatic hyperplasia medications. Job ID: [id number]
[2019-04-11 13:14] VITALS: TEMP 97.9
--- NOTE | 2019-04-11 16:43 | DIS ---
DATE OF ADMISSION: 04/08/2019 DATE OF DISCHARGE: 04/11/2019 PRIMARY CARE PHYSICIAN: Dr. Storm oY. DISCHARGE DISPOSITION: Home with Home Health. PRIMARY DISCHARGE DIAGNOSES: Epididymo-orchitis, sepsis, and urinary tract infection. SECONDARY DISCHARGE DIAGNOSES: Hypertension, coronary artery disease, diabetes mellitus type 2, dyslipidemia, and obesity. PROCEDURES DONE DURING HOSPITALIZATION: Testicular ultrasound done showed no evidence of torsion. There is complex fluid collection medial to the left testicle. Echo with 2D Doppler showed an ejection fraction of 55% to 60%. There was moderate mitral regurgitation. Urine culture grew E. coli sensitive to all antibiotics except nitrofurantoin. Blood cultures x2, no growth. Had a white count of 21 with discharge numbers of 11.4, H and H 14 and 45, platelet count 242 with 78% neutrophils. BUN 22 and creatinine 1.29. Hemoglobin A1c 8.6. DISCHARGE MEDICATIONS: 1. Levaquin 500 mg p.o. daily for another 28 days. 2. Flomax 0.4 mg twice daily. 3. Zocor 10 mg p.o. at bedtime. 4. Lopressor 12.5 mg twice daily. 5. Magnesium oxide 400 mg p.o. daily. 6. Cozaar 25 mg p.o. daily. 7. Imdur extended release 30 mg p.o. daily. 8. Glipizide 10 mg twice daily. 9. Lasix 20 mg daily. 10. Trulicity once weekly. 11. Aspirin 81 mg p.o. daily. 12. Allopurinol 100 mg p.o. twice daily. ALLERGIES: NO KNOWN DRUG ALLERGIES. INPATIENT CONSULT: Alee Hilario DO for Urology. DISCHARGE PLAN: The patient will follow up with Dr. Hilario in 2 weeks. He needs to follow up with his primary care physician, Dr. Storm Yo in 1 week. The patient will have a [facility] and the lab weekly CBC and CMP drawn starting on the of this month. The results to be faxed to Dr. Hilario office. BRIEF COURSE DURING HOSPITALIZATION: The patient initially came into ER with complaints of scrotal edema and pain. He was found to have had left epididymo-orchitis with acute kidney injury and sepsis and white count of 22,000. The patient was placed on broad-spectrum IV antibiotics. He has had consultation with Dr. Hilario for Urology. He has had scrotal elevation during the course of his stay here. The patient still has some occasional pain radiating to his left medial thigh from the scrotal area, but for the most part, the pain has resolved. He is able ambulate in the room and hallway. He is tolerating oral solid diet. The patient needs to continue Levaquin for another 4 weeks. He has been told about the side effects of taking Levaquin for a prolonged duration and all the information about Levaquin will be given prior to him being discharged. He needs to call Dr. Hilario office and set up a followup appointment in 2 weeks. He is otherwise hemodynamically stable and will be shortly discharged home. Please note, I have seen and examined the patient on the day of discharge. Job ID: [id number]
[2019-04-16] MEDS ORDERED: DULAGLUTIDE 0.75 MG/0.5 ML IM SCH (09:00)
== END 2019-04-11 13:05 | disposition home health service (06) | DRG 872 ==
LOC: ERS 09:25 → T4-B 13:52
PROVIDERS: ADMIT Internal Medicine; ATTEND Internal Medicine
DX: A41.51 Sepsis due to Escherichia coli [E. coli] (principal); N17.9 Acute kidney failure, unspecified; N30.01 Acute cystitis with hematuria; N45.3 Epididymo-orchitis; I25.10 Atherosclerotic heart disease of native coronary artery without angina pectoris; E78.5 Hyperlipidemia, unspecified; E66.01 Morbid (severe) obesity due to excess calories; E11.9 Type 2 diabetes mellitus without complications; N40.0 Benign prostatic hyperplasia without lower urinary tract symptoms; Z68.34 Body mass index [BMI] 34.0-34.9, adult; Z90.49 Acquired absence of other specified parts of digestive tract; Z95.5 Presence of coronary angioplasty implant and graft; Z89.221 Acquired absence of right upper limb above elbow; Z79.899 Other long term (current) drug therapy
CPT/HCPCS: 36415; 36416; 71046; 76870; 80048; 81003; 81015; 83036; 83605; 83880; 85025; 87040; 87077; 87086; 87186; 93306; 93976; J1650; J2543; J3370; J3490

== ENCOUNTER 2019-06-18 09:53 | Outpatient (CLI) | payer MEDICARE ==
--- NOTE | 2019-06-18 10:27 | ULT ---
Exam: Testicular ultrasound HISTORY: Follow-up epididymoorchitis COMPARISON: 04/08/2019 TECHNIQUE: Sagittal and transverse imaging of the left and right hemiscrotum are performed. Testicula r Doppler is performed with grayscale, color-flow, Doppler imaging and spectral waveform analysis. FINDINGS: Right hemiscrotum: Testicle: Homogeneous echotexture. No intratesticular masses. Minimal punctate calcifications. Right testicle measurements: 3.6 x 2.9 x 1.9 Right epididymis: Normal echotexture. 0.4 x 0.2 cm epididymal cyst. Right epididymis measurements: 0.7 x 0.8 cm cm Hydrocele: None Left hemiscrotum: Left testicle: Homogeneous echotexture. No intratesticular masses. Minimal punctate calcifications Left testicle measurements: 2. 652.0 x 3.7 cm Left epididymis: Normal echotexture. Left epididymis measurements:1.1 x 0.7 cm Hydrocele: None Testicular Doppler: There is symmetric vascular flow to the left and right testicle. There are dilate d vessels in the left and right hemiscrotum with increased flow upon Valsalva. Bilateral varicoceles. IMPRESSION: 1. Incidental right epididymal cysts 2. Bilateral varicoceles. 3. No testicular mass.
== END 2019-06-18 09:54 | disposition home or self-care (01) ==
LOC: BICULT 09:53
PROVIDERS: ATTEND Urology
DX: N45.3 Epididymo-orchitis (principal); I86.1 Scrotal varices; N50.3 Cyst of epididymis
CPT/HCPCS: 36415; 76870; 80048; 81001; 83036; 87086; 93976

== ENCOUNTER 2019-10-10 13:54 | Outpatient (CLI) | payer OTHER ==
--- NOTE | 2019-10-10 15:08 | CT ---
CT abdomen and pelvis noncontrast HISTORY: Flank pain. Epididymoorchitis. FINDINGS: Tiny nonspecific subpleural nodules at each lung base. Each renal collecting system, ureter, and urinary bladder are decompressed without stone apparent. Ca lcified granulomata of the spleen are consistent with healed granulomatous disease. Prominent calcification throughout the arterial structures, with likely stenoses of the celiac trunk and superior mesenteric artery and high-grade stenoses of the renal arteries. Prominent degenerative changes throughout the lumbar spine, including severe stenoses of the central canal at the L4-5 level and each neural foramen at the lumbosacral junction. Lack of contrast limits evaluation of the soft tissues. A smoothly marginated 3.4 cm homogeneous fat density mass at the left adrenal gland is consistent with a lipoma. A similar 0.5 cm lesion arises from the apex right adrenal gland. 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 Smoothly marginated fluid density round mass projecting laterally from the cortex of the left kidney is 5.7 cm greatest diameter. Exophytic cyst projecting inferiorly from the right kidney is 2.4 cm. IMPRESSION : No CT evidence of urinary tract obstruction or calcification. Bilateral renal cysts. Right renal angiomyolipoma Bilateral adrenal myelolipomas. 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 Prominent degenerative changes of the lumbar spine including central canal and foraminal stenoses.
== END 2019-10-10 13:55 | disposition home or self-care (01) ==
LOC: BICCT 13:54
PROVIDERS: ATTEND Urology
DX: N40.1 Benign prostatic hyperplasia with lower urinary tract symptoms (principal); N45.3 Epididymo-orchitis; I86.1 Scrotal varices; D17.71 Benign lipomatous neoplasm of kidney; D35.01 Benign neoplasm of right adrenal gland; D35.02 Benign neoplasm of left adrenal gland; K55.1 Chronic vascular disorders of intestine; I70.1 Atherosclerosis of renal artery; M47.816 Spondylosis without myelopathy or radiculopathy, lumbar region; M48.061 Spinal stenosis, lumbar region without neurogenic claudication; N28.1 Cyst of kidney, acquired
CPT/HCPCS: 74176

== ENCOUNTER 2020-02-01 06:23 | Outpatient (CLI) | payer OTHER ==
[2020-02-01 11:35] LABS: INR-International Normal Ratio 1.1; Prothrombin Time 14.4 sec (12.0-14.7)
[2020-02-01 11:36] LABS: PTT 34.6 sec (22.9-36.1)
[2020-02-01 11:48] LABS: Hemoglobin 15.7 g/dL (14.0-18.0); Mean Corpuscular HGB CONC 31.9 g/dL (32.0-36.0); Mean Corpuscular Hemoglobin 30.5 pg (27.0-31.0); Mean Corpuscular Volume 95.7 fL (78.0-98.0); Platelet Count 177 thou/uL (130-400); RBC Distribution Width 14.1 % (11.5-14.5); Red Blood Cell (RBC) Count 5.14 mill/uL (4.70-6.10)
[2020-02-01 12:10] LABS: Anion Gap 14 mmol/L (10-20); BUN (Urea Nitrogen) 36 mg/dL (8.4-25.7); Calc. Creatinine Clearance 0 mL/min (70-130); Calcium 9.2 mg/dL (7.8-10.44); Carbon Dioxide 26 mmol/L (23-31); Chloride 101 mmol/L (98-107); Estimated GFR-MDRD 44; Glucose 248 mg/dL (83-110); Potassium 4.5 mmol/L (3.5-5.1); Sodium 136 mmol/L (136-145)
[2020-02-01 19:43] LABS: SARS-CoV-2 MS2 Positive; SARS-CoV-2 N Gene Negative; SARS-CoV-2 S Gene Negative; SARS-CoV-2 by NAA Not Detected (NotDetected); SARS-CoV-2 orf1ab Negative
--- NOTE | 2020-02-05 14:13 | EKG ---
Test Reason : EKG Blood Pressure : / mmHG Vent. Rate : 059 BPM Atrial Rate : 234 BPM P-R Int : 000 ms QRS Dur : 080 ms QT Int : 434 ms P-R-T Axes : 000 -20 050 degrees QTc Int : 429 ms Atrial tachycardia Low voltage QRS Abnormal ECG No previous ECGs available Confirmed by DAISY FUNK ([id number]) on 02/05/2020 2:13:19 PM Referred By: DR VALENZUELA Confirmed By:DAISY FUNK
== END 2020-02-01 06:24 | disposition home or self-care (01) ==
LOC: LABBT 06:23
PROVIDERS: ATTEND Urology
DX: Z01.818 Encounter for other preprocedural examination (principal); N45.3 Epididymo-orchitis; I86.1 Scrotal varices; D30.01 Benign neoplasm of right kidney; D17.79 Benign lipomatous neoplasm of other sites; N40.1 Benign prostatic hyperplasia with lower urinary tract symptoms; I48.91 Unspecified atrial fibrillation; E11.9 Type 2 diabetes mellitus without complications; R39.11 Hesitancy of micturition; Z20.828 Contact with and (suspected) exposure to other viral communicable diseases
CPT/HCPCS: 80048; 85027; 85610; 85730; 87635; 93005; 93010; U0003

== ENCOUNTER 2020-02-06 05:50 | Day surgery (SDC) | payer OTHER ==
[2020-02-04 10:35] VITALS: BMI 33.3
[2020-02-06] MEDS ORDERED: Fentanyl 100 MCG/2 ML VIAL ONE (06:45)
[2020-02-06] MEDS ORDERED: Midazolam HCl 2 mg/2 ml Vial ONE (06:45)
[2020-02-06 06:59] LABS: PTT 30.9 sec (22.9-36.1); Prothrombin Time 13.6 sec (12.0-14.7)
[2020-02-06] MEDS ORDERED: Levofloxacin 500 mg/D5W 100 ml Premix Bag ONE (07:12)
[2020-02-06] MEDS ORDERED: ePHEDrine 50 MG/ML VIAL ONE (08:12)
[2020-02-06] MEDS ORDERED: Phenazopyridine HCl 100 MG TAB ONE (08:21)
[2020-02-06] MEDS ORDERED: PROPOFOL 200 MG/20 ML VIAL ONE (09:51)
[2020-02-06] MEDS ORDERED: HYDROcodone/Acetaminophen 5/325 mg Tablet ONE ×2 (10:22→12:29)
--- NOTE | 2020-02-07 11:22 | OP ---
DATE OF PROCEDURE: 02/06/2020 PRIMARY CARE PHYSICIAN: Dr. France Jeter. DEVELOPING MACHINE OPERATOR: Aoms Rossi MD. PREOPERATIVE DIAGNOSES: 1. An 89-year-old male with history of benign prostatic hyperplasia. 2. Prior history of urinary tract infection, epididymo-orchitis. POSTOPERATIVE DIAGNOSES: 1. An 89-year-old male with history of benign prostatic hyperplasia. 2. Prior history of urinary tract infection, epididymo-orchitis. PROCEDURES PERFORMED: Cystoscopy, UroLift implant x8, with one pull-through. ANESTHESIA: TIVA. COMPLICATIONS: None apparent. DISPOSITION: To recovery room in stable condition. INTRAOPERATIVE FINDINGS: Bilobar hyperplasia of the prostate, left lateral lobe more obstructing than the right lobe. Bladder demonstrating trabeculation consistent with chronic outlet obstruction. No evidence of bladder tumor or stones. INDICATIONS FOR PROCEDURE AND HISTORY: Mr. De La Cruz is a pleasant 89-year-old male with history of hypertension, diabetes, coronary artery disease, whom I had seen as an inpatient consultation as he presented with epididymo-orchitis. He has been on dual medical therapy for numerous years and subsequently underwent workup for UroLift. He desired to proceed. Risks and complications of procedure were reviewed with him in detail including, but not limited to, bleeding, pain, infection, injury to adjacent organs, urosepsis, chronic pain, possible transitioning escalating to TURP if necessary. All questions were answered to his satisfaction and desired to proceed without reservation. DESCRIPTION OF PROCEDURE: After an informed consent was signed, the patient was taken to the operating room, placed in a dorsal lithotomy position with the genital area prepped and draped in the usual surgical sterile fashion. Bilateral ISABELA hose, SCDs, and broad-spectrum antibiotics were provided. A 21-Portuguese cystoscope was utilized with a visual obturator, UroLift device, which demonstrated again bilobar hyperplasia of the prostate. Left lobe is more asymmetrically enlarged. He does have a prostatic urethra that has a fluffy morphology. The bladder was entered, which demonstrated the ureteral orifices about 3 to 4 mm proximal to the bladder neck with trabeculation consistent with chronic outlet obstruction. There was no evidence of bladder tumor or stones appreciated. At this time, we transitioned to perform the UroLift implant. We placed the left lateral proximal implant first staying about 1.5 cm distal to the bladder neck. A total of 2 implants were required on the right lobe as this reduced his right lateral lobes resulting in resolution of the obstructive component from the right lobe. The left lateral lobe was more asymmetric and had a fluffy morphology. He required a total of 5 implants on the left, which reduced his obstructing lateral lobes. He did require stacking maneuver at the level of the bladder neck. Care was taken to avoid placing the urethral tab on the bladder neck and this was appreciated on cystoscopy with no concern for proximal placement of the tabs near the bladder neck. At the end of the procedure, he had a nice anterior channel created with resolution of the obstructing lobe. We did have one pull-through, attempting to place the stacking implant more proximally near the bladder neck. Therefore, a total of 8 implants utilized in which 7 remain in situ in the patient. An 18-Portuguese 30 mL Johnson catheter was placed without difficulty and we will monitor him for degree of hematuria and anticipate either discharge with indwelling Johnson catheter and voiding trial in the recovery room. As he has been on Eliquis, my clinical judgment to place the patient overnight was low. He was discharged with ciprofloxacin for course of 5 days, Azo t.i.d. for 7 to 10 days. Job ID: [id number] [facility]
== END 2020-02-06 14:30 | disposition home or self-care (01) ==
LOC: SDC 05:50
PROVIDERS: ATTEND Urology
PROC: 0T7D8DZ Dilation of Urethra with Intraluminal Device, Via Natural or Artificial Opening Endoscopic (ICD-10-PCS; principal; 2020-02-06)
DX: N40.1 Benign prostatic hyperplasia with lower urinary tract symptoms (principal); R39.11 Hesitancy of micturition; N45.3 Epididymo-orchitis; I10 Essential (primary) hypertension; I25.10 Atherosclerotic heart disease of native coronary artery without angina pectoris; I48.91 Unspecified atrial fibrillation; E11.9 Type 2 diabetes mellitus without complications; E78.5 Hyperlipidemia, unspecified; I86.1 Scrotal varices; D17.79 Benign lipomatous neoplasm of other sites; D30.01 Benign neoplasm of right kidney; Z79.01 Long term (current) use of anticoagulants; Z79.82 Long term (current) use of aspirin; Z79.84 Long term (current) use of oral hypoglycemic drugs; Z79.899 Other long term (current) drug therapy; Z95.5 Presence of coronary angioplasty implant and graft
CPT/HCPCS: 36416; 85610; 85730; C1889; J1956; J2250; J2704; J3010; J3490

== ENCOUNTER 2020-10-10 07:48 | Outpatient (CLI) | payer OTHER | END 2020-10-10 07:49 | disposition home or self-care (01) | LOC: BICULT 07:48 | PROVIDERS: ATTEND Urology | DX: D17.79 Benign lipomatous neoplasm of other sites (principal); D30.01 Benign neoplasm of right kidney; N28.1 Cyst of kidney, acquired | CPT/HCPCS: 76770; 81001 ==

== ENCOUNTER 2020-11-11 10:49 | Outpatient (CLI) | payer OTHER | END 2020-11-11 10:50 | disposition home or self-care (01) | LOC: BICCT 10:49 | PROVIDERS: ATTEND Urology | DX: D30.01 Benign neoplasm of right kidney (principal); N28.9 Disorder of kidney and ureter, unspecified; D35.02 Benign neoplasm of left adrenal gland; N28.1 Cyst of kidney, acquired | CPT/HCPCS: 74176 ==

== ENCOUNTER 2021-09-04 10:35 | Emergency (ER) | payer OTHER ==
[2021-09-04 11:45] LABS: #Eosinphils 0.1 thou/uL (0.0-0.7); #Monocytes 0.7 thou/uL (0.11-0.59); #Neutrophils 13.2 thou/uL (1.40-6.50); %Basophils 0.2 % (0.0-1.0); %Eosinophils 0.6 % (0.0-10.0); %Lymphocytes 6.7 % (21.0-51.0); %Monocytes 4.6 % (0.0-10.0); %Neutrophils 87.9 % (42.0-75.0); Hemoglobin 15.8 g/dL (14.0-18.0); Mean Corpuscular Hemoglobin 31.8 pg (27.0-31.0); Mean Corpuscular Volume 99.1 fL (78.0-98.0); Mean Platelet Volume 7.4 fL (7.4-10.4); Platelet Count 181 thou/uL (130-400); RBC Distribution Width 13.7 % (11.5-14.5); Red Blood Cell (RBC) Count 4.98 mill/uL (4.70-6.10)
[2021-09-04 12:03] LABS: ALT (SGPT) 14 U/L (8-55); AST (SGOT) 24 U/L (5-34); Alkaline Phosphatase 81 U/L (40-110); Anion Gap 12 mmol/L (10-20); BUN (Urea Nitrogen) 29 mg/dL (8.4-25.7); Bilirubin, Total 1.1 mg/dL (0.2-1.2); Calc. Creatinine Clearance 0 mL/min (70-130); Calcium 9.6 mg/dL (7.8-10.44); Carbon Dioxide 27 mmol/L (23-31); Chloride 105 mmol/L (98-107); Globulin 3.3 g/dL (2.4-3.5); Glucose 216 mg/dL (83-110); Potassium 5.4 mmol/L (3.5-5.1); Protein, Total 7.3 g/dL (5.8-8.1); Sodium 139 mmol/L (136-145)
[2021-09-04] MEDS ORDERED: Morphine 2 MG/ML VIAL ONE ×2 (12:17→14:02)
== END 2021-09-04 15:00 | disposition home or self-care (01) ==
LOC: ERS 10:35
DX: S22.31XA Fracture of one rib, right side, initial encounter for closed fracture (principal); I25.10 Atherosclerotic heart disease of native coronary artery without angina pectoris; E11.9 Type 2 diabetes mellitus without complications; E78.5 Hyperlipidemia, unspecified; I10 Essential (primary) hypertension; Z95.5 Presence of coronary angioplasty implant and graft; W01.190A Fall on same level from slipping, tripping and stumbling with subsequent striking against furniture, initial encounter
CPT/HCPCS: 71260; 74177; 80053; 85025; 93005; 96374; 96376; J2270

== ENCOUNTER 2021-09-12 10:24 | Inpatient (IN) | payer OTHER ==
[2021-09-12 11:01] LABS: #Basophils 0.1 thou/uL (0.0-0.2); #Eosinphils 0.2 thou/uL (0.0-0.7); #Lymphocytes 1.2 thou/uL (1.20-3.40); #Monocytes 0.7 thou/uL (0.11-0.59); #Neutrophils 9.3 thou/uL (1.40-6.50); %Basophils 0.5 % (0.0-1.0); %Eosinophils 1.7 % (0.0-10.0); %Monocytes 6.4 % (0.0-10.0); %Neutrophils 81.4 % (42.0-75.0); Hemoglobin 14.7 g/dL (14.0-18.0); Mean Corpuscular Hemoglobin 31.8 pg (27.0-31.0); Mean Corpuscular Volume 99.5 fL (78.0-98.0); Mean Platelet Volume 7.5 fL (7.4-10.4); Platelet Count 188 thou/uL (130-400); RBC Distribution Width 13.4 % (11.5-14.5); Red Blood Cell (RBC) Count 4.63 mill/uL (4.70-6.10); White Blood Cell (WBC) Count 11.5 thou/uL (4.8-10.8)
[2021-09-12 11:23] LABS: ALT (SGPT) 9 U/L (8-55); AST (SGOT) 11 U/L (5-34); Albumin 3.7 g/dL (3.4-4.8); Alkaline Phosphatase 73 U/L (40-110); Anion Gap 15 mmol/L (10-20); BUN (Urea Nitrogen) 39 mg/dL (8.4-25.7); Bilirubin, Total 1.1 mg/dL (0.2-1.2); Calc. Creatinine Clearance 0 mL/min (70-130); Calcium 9.5 mg/dL (7.8-10.44); Carbon Dioxide 24 mmol/L (23-31); Chloride 102 mmol/L (98-107); Globulin 3.1 g/dL (2.4-3.5); Glucose 188 mg/dL (83-110); Lipase 26 U/L (8-78); Potassium 4.7 mmol/L (3.5-5.1); Protein, Total 6.8 g/dL (5.8-8.1); Sodium 136 mmol/L (136-145)
[2021-09-12 12:06] LABS: INR-International Normal Ratio 1.2; Prothrombin Time 15.4 sec (12.0-14.7)
[2021-09-12 12:07] LABS: PTT 38.6 sec (22.9-36.1)
[2021-09-12 12:30] LABS: Bacteria/HPF None Seen HPF (None Seen); Bilirubin Negative (Negative); Blood, Urine Negative (Negative); Clarity Clear (Clear); Glucose, Urine (Dipstick) Normal (Negative); Ketone, Urine Negative (Negative); Leukocyte 25 Leu/uL (Negative); Nitrite Negative (Negative); Protein, Urine (Dipstick) Negative (Neg-Trace); RBC/HPF 0-3 HPF (0-3); Squamous Epithelial None Seen HPF (0-3); Urobilinogen Normal mg/dL (Less than 2); WBC/HPF 0-3 HPF (0-3); pH, Urine 5.5 (5.0-9.0)
[2021-09-12 12:37] LABS: Amphetamine Not Detected (NotDetected); Barbiturates Screen Not Detected (NotDetected); Benzodiazepine Screen Not Detected (NotDetected); Cocaine Metabolite Screen Not Detected (NotDetected); Methadone Not Detected (NotDetected); Methamphetamine Not Detected (NotDetected); Opiate Screen Detected (NotDetected); Oxycodone Screen Not Detected (NotDetected); Phencyclidine (PCP) Not Detected (NotDetected); THC/Cannabinoid Screen Not Detected (NotDetected); Tricyclic Screen Not Detected (NotDetected)
[2021-09-12 17:29] LABS: SARS-CoV-2 NAA Rapid Test Not Detected (NotDetected)
[2021-09-12] MEDS ORDERED: Sodium Chloride 0.9% 1,000 ML IV SCH (21:00)
[2021-09-12 23:18] LABS: Troponin I 0.019 ng/mL (< 0.028)
[2021-09-13] MEDS ORDERED: Ondansetron PF 4 MG/2 ML Vial IVP PRN (00:58)
[2021-09-13] MEDS ORDERED: Sodium Chloride 0.9% 1,000 ML IV SCH (00:59)
[2021-09-13] MEDS ORDERED: HumaLOG 300 UNITS/3 ML VIAL SC PRN (01:01)
[2021-09-13] MEDS ORDERED: Dextrose 50% Abboject 50 ML SYRINGE SLOW IVP PRN (01:01)
[2021-09-13] MEDS ORDERED: hydrALAZINE 20 MG/ML VIAL SLOW IVP PRN (01:01)
[2021-09-13] MEDS ORDERED: Dextrose 5% in Water 1,000 ML IV PRN (01:01)
[2021-09-13 02:08] LABS: Troponin I 0.024 ng/mL (< 0.028)
[2021-09-13 04:31] LABS: #Eosinphils 0.2 thou/uL (0.0-0.7); #Lymphocytes 1.5 thou/uL (1.20-3.40); #Monocytes 0.5 thou/uL (0.11-0.59); #Neutrophils 6.7 thou/uL (1.40-6.50); %Basophils 0.5 % (0.0-1.0); %Eosinophils 2.2 % (0.0-10.0); %Lymphocytes 16.8 % (21.0-51.0); %Neutrophils 74.5 % (42.0-75.0); Hemoglobin 14.7 g/dL (14.0-18.0); Mean Corpuscular HGB CONC 33.1 g/dL (32.0-36.0); Mean Corpuscular Hemoglobin 32.5 pg (27.0-31.0); Mean Corpuscular Volume 98.1 fL (78.0-98.0); Mean Platelet Volume 6.8 fL (7.4-10.4); Platelet Count 191 thou/uL (130-400); RBC Distribution Width 13.2 % (11.5-14.5); Red Blood Cell (RBC) Count 4.54 mill/uL (4.70-6.10)
[2021-09-13 05:19] LABS: Anion Gap 15 mmol/L (10-20); BUN (Urea Nitrogen) 31 mg/dL (8.4-25.7); Calc. Creatinine Clearance 54 mL/min (70-130); Calcium 9.3 mg/dL (7.8-10.44); Carbon Dioxide 22 mmol/L (23-31); Chloride 105 mmol/L (98-107); Glucose 78 mg/dL (83-110); Sodium 138 mmol/L (136-145)
[2021-09-13] MEDS: Metoprolol Tartrate 25 MG TAB PO SCH ×2 (10:04→20:27)
[2021-09-13] MEDS ORDERED: Aspirin 81 mg Enteric Coated Tablet PO SCH (18:00)
[2021-09-13] MEDS: Apixaban 5 MG TAB PO SCH (20:27)
[2021-09-13] MEDS: Acetaminophen 325 MG TAB PO PRN (20:34)
[2021-09-14 05:02] LABS: #Basophils 0.1 thou/uL (0.0-0.2); #Eosinphils 0.3 thou/uL (0.0-0.7); #Lymphocytes 1.6 thou/uL (1.20-3.40); #Monocytes 0.8 thou/uL (0.11-0.59); #Neutrophils 7.3 thou/uL (1.40-6.50); %Basophils 0.6 % (0.0-1.0); %Eosinophils 3.4 % (0.0-10.0); %Monocytes 7.8 % (0.0-10.0); %Neutrophils 72.2 % (42.0-75.0); Hemoglobin 15.9 g/dL (14.0-18.0); Mean Corpuscular HGB CONC 33.1 g/dL (32.0-36.0); Mean Corpuscular Hemoglobin 32.7 pg (27.0-31.0); Mean Corpuscular Volume 98.7 fL (78.0-98.0); Platelet Count 207 thou/uL (130-400); RBC Distribution Width 13.4 % (11.5-14.5); Red Blood Cell (RBC) Count 4.85 mill/uL (4.70-6.10); White Blood Cell (WBC) Count 10.1 thou/uL (4.8-10.8)
[2021-09-14 05:23] LABS: Anion Gap 13 mmol/L (10-20); BUN (Urea Nitrogen) 27 mg/dL (8.4-25.7); Calc. Creatinine Clearance 54 mL/min (70-130); Calcium 9.8 mg/dL (7.8-10.44); Carbon Dioxide 24 mmol/L (23-31); Chloride 105 mmol/L (98-107); Glucose 122 mg/dL (83-110); Potassium 4.3 mmol/L (3.5-5.1); Sodium 138 mmol/L (136-145)
[2021-09-14] MEDS ORDERED: Colchicine 0.3 MG TAB PO PRN (08:59)
[2021-09-14] MEDS ORDERED: glipiZIDE 10 MG TAB PO SCH (09:15)
[2021-09-14 09:45] VITALS: BMI 31.1
[2021-09-14] MEDS: Aspirin 81 mg Enteric Coated Tablet PO SCH (11:01)
[2021-09-14] MEDS: Magnesium Oxide 400 MG TAB PO SCH (11:02)
[2021-09-14] MEDS: Metoprolol Tartrate 25 MG TAB PO SCH (11:02)
[2021-09-14] MEDS: Apixaban 5 MG TAB PO SCH (11:02)
[2021-09-14] MEDS: Furosemide 20 MG TAB PO SCH (11:03)
[2021-09-14] MEDS: glipiZIDE 10 MG TAB PO SCH (18:02)
[2021-09-14] MEDS: HumaLOG 300 UNITS/3 ML VIAL SC PRN (18:04)
[2021-09-14] MEDS ORDERED: Losartan 25 MG TAB PO SCH (21:00)
[2021-09-14] MEDS ORDERED: Allopurinol 100 MG TAB PO SCH (21:00)
[2021-09-14] MEDS ORDERED: Simvastatin 10 MG TAB PO SCH (21:00)
[2021-09-14] MEDS: Enoxaparin Sodium 100 MG/ML SYRINGE SC SCH (21:12)
[2021-09-15] MEDS: Acetaminophen 325 MG TAB PO PRN (03:47)
[2021-09-15 04:46] LABS: #Basophils 0.1 thou/uL (0.0-0.2); #Eosinphils 0.3 thou/uL (0.0-0.7); #Lymphocytes 2.1 thou/uL (1.20-3.40); #Monocytes 0.8 thou/uL (0.11-0.59); #Neutrophils 9.1 thou/uL (1.40-6.50); %Basophils 0.6 % (0.0-1.0); %Eosinophils 2.8 % (0.0-10.0); %Lymphocytes 16.7 % (21.0-51.0); %Monocytes 6.3 % (0.0-10.0); %Neutrophils 73.6 % (42.0-75.0); Hemoglobin 14.5 g/dL (14.0-18.0); Mean Corpuscular HGB CONC 32.2 g/dL (32.0-36.0); Mean Corpuscular Volume 99.2 fL (78.0-98.0); Mean Platelet Volume 7.4 fL (7.4-10.4); Platelet Count 221 thou/uL (130-400); RBC Distribution Width 13.3 % (11.5-14.5); Red Blood Cell (RBC) Count 4.53 mill/uL (4.70-6.10); White Blood Cell (WBC) Count 12.3 thou/uL (4.8-10.8)
[2021-09-15 05:18] LABS: Anion Gap 14 mmol/L (10-20); BUN (Urea Nitrogen) 32 mg/dL (8.4-25.7); Calc. Creatinine Clearance 44 mL/min (70-130); Calcium 9.6 mg/dL (7.8-10.44); Carbon Dioxide 23 mmol/L (23-31); Cardiac Risk 3.5 (Less than 4.5); Chloride 104 mmol/L (98-107); Cholesterol 126 mg/dl (< 200 Desired); Glucose 207 mg/dL (83-110); HDL Cholesterol 36 mg/dL (>60 Neg Risk); LDL Cholesterol, Calculated 70 mg/dL; Potassium 4.1 mmol/L (3.5-5.1); Sodium 137 mmol/L (136-145); Triglycerides 102 mg/dL (Less than 150)
[2021-09-15] MEDS ORDERED: Dronedarone HCl 400 MG TAB PO SCH ×2 (10:00→17:00)
[2021-09-15] MEDS: Enoxaparin Sodium 100 MG/ML SYRINGE SC SCH (10:05)
[2021-09-15] MEDS: glipiZIDE 10 MG TAB PO SCH (10:08)
[2021-09-15] MEDS: Aspirin 81 mg Enteric Coated Tablet PO SCH (10:08)
[2021-09-15] MEDS: Magnesium Oxide 400 MG TAB PO SCH (10:08)
[2021-09-15] MEDS: Furosemide 20 MG TAB PO SCH (10:09)
[2021-09-15 12:26] VITALS: BP 126/62; TEMP 97.7
[2021-09-15] MEDS: HumaLOG 300 UNITS/3 ML VIAL SC PRN (13:11)
[2021-09-15] MEDS ORDERED: hydrALAZINE 25 MG TAB PO SCH (15:00)
[2021-09-15] MEDS ORDERED: Atorvastatin Calcium 10 MG TAB PO SCH (21:00)
[2021-09-20] MEDS ORDERED: (Dulaglutide [Trulicity] 0.75 MG/0.5 ML Pen.Injctr) SC SCH (09:00)
== END 2021-09-15 15:30 | disposition home or self-care (01) | DRG 92 ==
LOC: ERS 10:24 → 2NO 20:53 → OBSVTOIN 09-14 09:51
PROVIDERS: ADMIT Internal Medicine; ATTEND Emergency Medicine
DX: G92.8 Other toxic encephalopathy (principal); N17.9 Acute kidney failure, unspecified; I48.92 Unspecified atrial flutter; E78.5 Hyperlipidemia, unspecified; I25.10 Atherosclerotic heart disease of native coronary artery without angina pectoris; E11.22 Type 2 diabetes mellitus with diabetic chronic kidney disease; N18.30 Chronic kidney disease, stage 3 unspecified; I12.9 Hypertensive chronic kidney disease with stage 1 through stage 4 chronic kidney disease, or unspecified chronic kidney disease; F03.90 Unspecified dementia, unspecified severity, without behavioral disturbance, psychotic disturbance, mood disturbance, and anxiety; N40.0 Benign prostatic hyperplasia without lower urinary tract symptoms; E78.00 Pure hypercholesterolemia, unspecified; Z20.822 Contact with and (suspected) exposure to COVID-19; W19.XXXD Unspecified fall, subsequent encounter; T40.605A Adverse effect of unspecified narcotics, initial encounter; I48.0 Paroxysmal atrial fibrillation; I49.5 Sick sinus syndrome; Z79.899 Other long term (current) drug therapy; Z95.5 Presence of coronary angioplasty implant and graft; Z89.221 Acquired absence of right upper limb above elbow; Z79.82 Long term (current) use of aspirin; Z90.49 Acquired absence of other specified parts of digestive tract; Z87.891 Personal history of nicotine dependence; S22.31XD Fracture of one rib, right side, subsequent encounter for fracture with routine healing; Z91.81 History of falling; Z79.01 Long term (current) use of anticoagulants; Y92.9 Unspecified place or not applicable
CPT/HCPCS: 36415; 36416; 70450; 80048; 80053; 80061; 80306; 81003; 81015; 83690; 84484; 85025; 85610; 85730; 93005; 93306; G0378; J1650; J1815; J7050; U0002

== ENCOUNTER 2021-11-04 15:12 | Inpatient (IN) | payer OTHER ==
[2021-11-04] MEDS ORDERED: HOLD HYPOGLYCEMIC MEDS AM OF CATH FS SCH (17:00)
[2021-11-04 17:11] LABS: #Eosinphils 0.2 thou/uL (0.0-0.7); #Lymphocytes 1.6 thou/uL (1.20-3.40); #Monocytes 0.6 thou/uL (0.11-0.59); #Neutrophils 8.6 thou/uL (1.40-6.50); %Basophils 0.2 % (0.0-1.0); %Eosinophils 1.4 % (0.0-10.0); %Lymphocytes 14.4 % (21.0-51.0); %Monocytes 5.8 % (0.0-10.0); %Neutrophils 78.1 % (42.0-75.0); Hemoglobin 14.7 g/dL (14.0-18.0); Mean Corpuscular HGB CONC 31.8 g/dL (32.0-36.0); Mean Corpuscular Hemoglobin 31.4 pg (27.0-31.0); Mean Corpuscular Volume 98.7 fL (78.0-98.0); Mean Platelet Volume 7.5 fL (7.4-10.4); Platelet Count 213 thou/uL (130-400); RBC Distribution Width 13.8 % (11.5-14.5); Red Blood Cell (RBC) Count 4.67 mill/uL (4.70-6.10)
[2021-11-04 17:36] LABS: ALT (SGPT) 9 U/L (8-55); AST (SGOT) 14 U/L (5-34); Albumin 3.9 g/dL (3.4-4.8); Alkaline Phosphatase 94 U/L (40-110); Anion Gap 15 mmol/L (10-20); BUN (Urea Nitrogen) 46 mg/dL (8.4-25.7); Bilirubin, Total 0.6 mg/dL (0.2-1.2); Calc. Creatinine Clearance 0 mL/min (70-130); Calcium 9.9 mg/dL (7.8-10.44); Carbon Dioxide 26 mmol/L (23-31); Chloride 103 mmol/L (98-107); Cholesterol 118 mg/dl (< 200 Desired); Estimated GFR 36; Globulin 3.4 g/dL (2.4-3.5); Glucose 237 mg/dL (83-110); HDL Cholesterol 39 mg/dL (>60 Neg Risk); LDL Cholesterol, Calculated 27 mg/dL; Potassium 4.6 mmol/L (3.5-5.1); Protein, Total 7.3 g/dL (5.8-8.1); Sodium 139 mmol/L (136-145); Triglycerides 260 mg/dL (Less than 150)
[2021-11-04] MEDS: Sodium Chloride 0.9% 1,000 ML IV SCH (17:43)
[2021-11-04] MEDS ORDERED: Magnesium Oxide 400 MG TAB PO PRN (17:51)
[2021-11-04] MEDS ORDERED: DULAGLUTIDE 0.75 MG/0.5 ML SC SCH (18:00)
[2021-11-04 18:16] VITALS: BMI 33.4
[2021-11-04] MEDS: hydrALAZINE 25 MG TAB PO SCH ×2 (20:41→20:45)
[2021-11-04] MEDS: Finasteride 5 MG TAB PO SCH ×2 (20:41→20:45)
[2021-11-04] MEDS: Atorvastatin Calcium 10 MG TAB PO SCH ×2 (20:41→20:45)
[2021-11-04 20:54] LABS: SARS-CoV-2 NAA Rapid Test Not Detected (NotDetected)
[2021-11-04] MEDS ORDERED: DC ENOXAPARIN NIGHT BEFORE CATH FS SCH (22:00)
[2021-11-05] MEDS: Sodium Chloride 0.9% 1,000 ML IV SCH ×2 (04:37→15:40)
[2021-11-05 05:31] LABS: Anion Gap 14 mmol/L (10-20); BUN (Urea Nitrogen) 39 mg/dL (8.4-25.7); Calc. Creatinine Clearance 45 mL/min (70-130); Calcium 9.1 mg/dL (7.8-10.44); Carbon Dioxide 23 mmol/L (23-31); Chloride 107 mmol/L (98-107); Estimated GFR 41; Glucose 205 mg/dL (83-110); Potassium 4.2 mmol/L (3.5-5.1); Sodium 140 mmol/L (136-145)
[2021-11-05] MEDS: Tamsulosin HCl 0.4 MG CAP PO SCH (05:49)
[2021-11-05] MEDS: Aspirin 81 mg Enteric Coated Tablet PO SCH (05:49)
[2021-11-05] MEDS: hydrALAZINE 25 MG TAB PO SCH ×3 (05:49→21:02)
[2021-11-05] MEDS ORDERED: Heparin 10,000 UNITS/ 10 ML VIAL ONE (07:07)
[2021-11-05] MEDS ORDERED: Lidocaine 1% (PF) 30 ML VIAL ONE (07:17)
[2021-11-05] MEDS ORDERED: Midazolam HCl 2 mg/2 ml Vial ONE (08:57)
[2021-11-05] MEDS ORDERED: Fentanyl 100 MCG/2 ML VIAL ONE (08:57)
[2021-11-05] MEDS ORDERED: Protamine Sulfate 50 MG/5 ML VIAL ONE (09:23)
[2021-11-05] MEDS ORDERED: Iopamidol 370 76% 100 ML VIAL ONE (09:37)
[2021-11-05] MEDS ORDERED: Acetaminophen/Codeine 30-300mg Tablet PO PRN ×2 (09:50)
[2021-11-05] MEDS ORDERED: Nitroglycerin 0.4 MG TAB (25 Tab Bottle) SL PRN (09:50)
[2021-11-05] MEDS ORDERED: Sodium Chloride 0.9% 200 ML IV PRN (09:50)
[2021-11-05] MEDS ORDERED: Sodium Chloride 0.9% 1,000 ML IV SCH (10:00)
[2021-11-05] MEDS: Atorvastatin Calcium 10 MG TAB PO SCH (21:02)
[2021-11-05] MEDS: Finasteride 5 MG TAB PO SCH (21:02)
[2021-11-06] MEDS: Sodium Chloride 0.9% 1,000 ML IV SCH (05:25)
[2021-11-06 06:43] LABS: Anion Gap 10 mmol/L (10-20); BUN (Urea Nitrogen) 24 mg/dL (8.4-25.7); Calc. Creatinine Clearance 63 mL/min (70-130); Carbon Dioxide 23 mmol/L (23-31); Chloride 110 mmol/L (98-107); Estimated GFR 62; Glucose 137 mg/dL (83-110); Potassium 4.3 mmol/L (3.5-5.1); Sodium 139 mmol/L (136-145)
[2021-11-06] MEDS ORDERED: glipiZIDE 10 MG TAB PO SCH (07:30)
[2021-11-06] MEDS: hydrALAZINE 25 MG TAB PO SCH (08:23)
[2021-11-06] MEDS: Tamsulosin HCl 0.4 MG CAP PO SCH (08:23)
[2021-11-06] MEDS: Aspirin 81 mg Enteric Coated Tablet PO SCH (08:23)
[2021-11-06 11:28] VITALS: BP 122/67; TEMP 97.6
== END 2021-11-06 15:10 | disposition home or self-care (01) | DRG 287 ==
LOC: 2NO 15:12
PROVIDERS: ADMIT Internal Medicine Cardiovascular Disease; ATTEND Internal Medicine Cardiovascular Disease
PROC: B2111ZZ Fluoroscopy of Multiple Coronary Arteries using Low Osmolar Contrast (ICD-10-PCS; principal; 2021-11-05)
DX: I25.10 Atherosclerotic heart disease of native coronary artery without angina pectoris (principal); Z20.822 Contact with and (suspected) exposure to COVID-19; I48.0 Paroxysmal atrial fibrillation; I49.5 Sick sinus syndrome; E78.00 Pure hypercholesterolemia, unspecified; N18.30 Chronic kidney disease, stage 3 unspecified; I12.9 Hypertensive chronic kidney disease with stage 1 through stage 4 chronic kidney disease, or unspecified chronic kidney disease; E11.22 Type 2 diabetes mellitus with diabetic chronic kidney disease; N40.0 Benign prostatic hyperplasia without lower urinary tract symptoms; Z95.5 Presence of coronary angioplasty implant and graft; Z89.221 Acquired absence of right upper limb above elbow; Z87.891 Personal history of nicotine dependence
CPT/HCPCS: 36415; 36416; 80048; 80053; 80061; 85025; 85347; 93005; 93010; 93454; 99152; 99153; J1644; J2001; J2250; J2720; J3010; J7050; Q9967; U0002

== ENCOUNTER 2021-11-13 11:12 | Outpatient (CLI) | payer OTHER | END 2021-11-13 11:13 | disposition home or self-care (01) | LOC: LABBT 11:12 | PROVIDERS: ATTEND Thoracic Surgery (Cardiothoracic Vascular Surgery) | DX: I25.10 Atherosclerotic heart disease of native coronary artery without angina pectoris (principal); Z20.822 Contact with and (suspected) exposure to COVID-19 | CPT/HCPCS: 80048; 85027; 86850; 86900; 86901; 87811 ==

== ENCOUNTER 2021-11-13 14:45 | Inpatient (IN) | payer OTHER ==
[2021-11-13 12:43] LABS: Mean Corpuscular HGB CONC 32.3 g/dL (32.0-36.0); Mean Corpuscular Hemoglobin 30.9 pg (27.0-33.0); Mean Corpuscular Volume 95.8 fl (81.2-95.1); Mean Platelet Volume 9.8 fl (7.4-10.4); Platelet Count 217 10x3/uL (150-450); RBC Distribution Width 14.6 % (11.5-14.5); Red Blood Cell (RBC) Count 4.53 10x6/uL (4.32-5.72); White Blood Cell (WBC) Count 11.5 10x3/uL (3.5-10.5)
[2021-11-13 13:10] LABS: Anion Gap 7 mmol/L (10-20); BUN (Urea Nitrogen) 23 mg/dL (8.4-25.7); Calc. Creatinine Clearance 0 mL/min (70-130); Calcium 9.2 mg/dL (7.8-10.44); Carbon Dioxide 25 mmol/L (23-31); Chloride 98 mmol/L (98-107); Estimated GFR 49; Glucose 169 mg/dL (83-110); Potassium 4.2 mmol/L (3.5-5.1); Sodium 126 mmol/L (136-145)
[2021-11-17] MEDS ORDERED: PHENYLEPHRINE-NS 100 MCG/ML 10 ML SYRINGE ONE ×2 (06:34→09:22)
[2021-11-17] MEDS ORDERED: Albumin 5% 500 ML ONE (06:35)
[2021-11-17] MEDS ORDERED: Heparin 10,000 UNITS/1 ML VIAL 30,000 UNITS in Sodium Chloride 0.9% 1,000 ML FS SCH (06:45)
[2021-11-17] MEDS ORDERED: Midazolam HCl 5 mg/5 ml Vial ONE (06:47)
[2021-11-17] MEDS ORDERED: Dexmedetomidine 200 MCG/2 ML VIAL ONE (06:48)
[2021-11-17] MEDS ORDERED: fentaNYL Citrate/PF 100 MCG/2 ML SYRINGE ONE (06:48)
[2021-11-17] MEDS ORDERED: Ondansetron ODT 4 MG TAB ONE (07:08)
[2021-11-17] MEDS ORDERED: Lidocaine 1% PF 5 ML VIAL ONE ×2 (07:08→07:39)
[2021-11-17] MEDS ORDERED: Sodium Chloride 0.9% 100 ML ONE (07:19)
[2021-11-17] MEDS ORDERED: CEFAZOLIN 2 GM VIAL ONE (07:19)
[2021-11-17] MEDS ORDERED: Papaverine 60 MG/2 ML VIAL ONE (07:39)
[2021-11-17] MEDS ORDERED: Aminocaproic Acid 5 GM/20 ML VIAL ONE (07:39)
[2021-11-17] MEDS ORDERED: Magnesium Sulfate 1 GM/2 ML VIAL ONE (07:39)
[2021-11-17] MEDS ORDERED: Heparin 30,000 units/30 ml VIAL ONE (07:39)
[2021-11-17] MEDS ORDERED: Rocuronium Bromide 10 MG/ML (10ML VIAL) ONE (07:39)
[2021-11-17] MEDS ORDERED: Calcium Chloride 1 GM/10 ML Abboject SYRINGE ONE (07:39)
[2021-11-17] MEDS ORDERED: Sodium Bicarb 50 MEQ/50 ML Abboject 8.4% SYRINGE ONE (07:39)
[2021-11-17] MEDS ORDERED: Thrombin 5000 UNITS/5 ML VIAL ONE (07:39)
[2021-11-17] MEDS ORDERED: Dexamethasone 20 MG/5 ML VIAL ONE (07:39)
[2021-11-17] MEDS ORDERED: Protamine Sulfate 250 MG/25 ML VIAL ONE (07:39)
[2021-11-17] MEDS ORDERED: Heparin 5,000 UNITS/ML VIAL ONE (07:39)
[2021-11-17] MEDS ORDERED: Mannitol 12.5 GM/50 ML ONE (07:39)
[2021-11-17] MEDS ORDERED: Nitroglycerin 50 MG/250 ML BOT ONE (07:39)
[2021-11-17] MEDS ORDERED: Glycopyrrolate 0.2 MG/ML 5 ML SYRINGE ONE (07:39)
[2021-11-17] MEDS ORDERED: Vecuronium 10 MG VIAL ONE (07:39)
[2021-11-17] MEDS ORDERED: Cardioplegic Soln 1,000 ML BAG ONE (07:39)
[2021-11-17] MEDS ORDERED: Lidocaine 2% PF 100 mg/5 ml Syringe ONE (07:39)
[2021-11-17] MEDS ORDERED: Phenylephrine 10 MG/ML VIAL ONE (07:39)
[2021-11-17] MEDS ORDERED: Norepinephrine 4 MG/4 ML VIAL ONE (07:39)
[2021-11-17] MEDS ORDERED: PROPOFOL 200 MG/20 ML VIAL ONE (07:39)
[2021-11-17] MEDS ORDERED: Insulin Regular 300 UNITS/3 ML VIAL ONE (08:50)
[2021-11-17] MEDS ORDERED: DOPamine 400 MG/D5W 250 ML 250 ML IVPB PRN (10:58)
[2021-11-17] MEDS ORDERED: NOREPINEPHRINE 8 MG/250 ML-D5W 250 ML IVPB PRN (10:58)
[2021-11-17] MEDS ORDERED: Promethazine HCl 25 MG/ML VIAL IM PRN (10:58)
[2021-11-17] MEDS ORDERED: hydrALAZINE 20 MG/ML VIAL SLOW IVP PRN (10:58)
[2021-11-17] MEDS ORDERED: Hetastarch 6% 500 ML 500 ML IVPB PRN (10:58)
[2021-11-17] MEDS ORDERED: Fentanyl 100 MCG/2 ML VIAL SLOW IVP PRN ×2 (10:58)
[2021-11-17] MEDS ORDERED: Morphine 2 MG/ML VIAL SLOW IVP PRN (10:58)
[2021-11-17] MEDS ORDERED: Post-Op Insulin Drip Protocol IVPB ONE (10:58)
[2021-11-17] MEDS ORDERED: Mag-Al 1200 mg/1200 mg/30 ML UDCUP PO PRN (10:58)
[2021-11-17] MEDS ORDERED: niCARdipine 25 MG in Sodium Chloride 0.9% 250 ML 250 ML IVPB PRN (10:58)
[2021-11-17] MEDS ORDERED: Potassium Chloride 20 MEQ/100 ML PREMIX BAG IVPB PRN (10:58)
[2021-11-17] MEDS ORDERED: Nitroglycerin 50 MG/250 ML BOT 250 ML IVPB PRN (10:58)
[2021-11-17] MEDS ORDERED: Ondansetron PF 4 MG/2 ML Vial IVP PRN (10:58)
[2021-11-17] MEDS ORDERED: Guaifenesin DM 100-10/5 ML UDCUP PO PRN (10:58)
[2021-11-17] MEDS ORDERED: Bisacodyl 10 MG SUPP PR PRN (10:58)
[2021-11-17] MEDS ORDERED: Magnesium 2 GM/50 ML(in water) 2 GM in Premix Bag 1 BAG IVPB SCH (11:00)
[2021-11-17] MEDS ORDERED: Insulin Regular 300 UNITS/3 ML VIAL SC PRN (11:30)
[2021-11-17] MEDS ORDERED: Dextrose 5% in Water 1,000 ML IV PRN (11:30)
[2021-11-17] MEDS ORDERED: Dextrose 50% Abboject 50 ML SYRINGE SLOW IVP PRN (11:30)
[2021-11-17] MEDS ORDERED: HUMULIN R 100 UNITS in Sodium Chloride 0.9% 100 ML IVPB SCH (11:30)
[2021-11-17 11:46] LABS: Hemoglobin 12.7 g/dL (14.0-18.0); Mean Corpuscular HGB CONC 31.6 g/dL (32.0-36.0); Mean Corpuscular Hemoglobin 31.8 pg (27.0-31.0); Mean Platelet Volume 7.3 fL (7.4-10.4); Platelet Count 151 thou/uL (130-400); RBC Distribution Width 13.7 % (11.5-14.5); Red Blood Cell (RBC) Count 4.01 mill/uL (4.70-6.10)
[2021-11-17 11:57] LABS: Anion Gap 11 mmol/L (10-20); BUN (Urea Nitrogen) 23 mg/dL (8.4-25.7); Calc. Creatinine Clearance 62 mL/min (70-130); Calcium 8.4 mg/dL (7.8-10.44); Carbon Dioxide 21 mmol/L (23-31); Chloride 110 mmol/L (98-107); Estimated GFR 61; Glucose 148 mg/dL (83-110); Sodium 138 mmol/L (136-145)
[2021-11-17] MEDS: Lactated Ringer's 1,000 ML IV SCH ×2 (11:57→23:21)
[2021-11-17 12:02] LABS: INR-International Normal Ratio 1.3; PTT 34.2 sec (22.9-36.1); Prothrombin Time 16.1 sec (12.0-14.7)
[2021-11-17 12:25] LABS: Band 21 % (5-11); Lymphocytes 5 % (21-51); MDiff Complete? YES; Macrocytosis SLIGHT = 6-15 cells (100X) (0-5/hpf); Monocytes 3 % (0-10); Neutrophil 65 % (42-75); Platelet Morphology Comment Appears Adequate; Polychromasia SLIGHT = 2-3 cells (100X) (0-2/hpf); Reactive Lymphocytes 6 % (0-10)
[2021-11-17 13:28] LABS: Glucose 217 mg/dL (83-110)
[2021-11-17] MEDS ORDERED: ceFAZolin (BATCH) 2 GM in Premix Bag 1 BAG IVPB SCH (15:00)
[2021-11-17] MEDS: CEFAZOLIN 2 GM VIAL IVPB SCH ×2 (16:15→23:00)
[2021-11-17 17:31] LABS: Potassium 4.9 mmol/L (3.5-5.1)
[2021-11-17] MEDS ORDERED: traMADol HCl 50 MG TAB PO PRN ×2 (19:14→19:15)
[2021-11-17] MEDS: Atorvastatin Calcium 10 MG TAB PO SCH (20:00)
[2021-11-17] MEDS: Famotidine/PF 20 mg/2ml Vial SLOW IVP SCH (20:01)
[2021-11-18 06:47] LABS: #Lymphocytes 0.7 thou/uL (1.20-3.40); #Monocytes 0.7 thou/uL (0.11-0.59); #Neutrophils 15.8 thou/uL (1.40-6.50); %Eosinophils 0.1 % (0.0-10.0); %Lymphocytes 4.2 % (21.0-51.0); %Monocytes 4.1 % (0.0-10.0); %Neutrophils 91.5 % (42.0-75.0); Mean Corpuscular HGB CONC 31.6 g/dL (32.0-36.0); Mean Corpuscular Hemoglobin 31.3 pg (27.0-31.0); Mean Corpuscular Volume 99.3 fL (78.0-98.0); Mean Platelet Volume 8.4 fL (7.4-10.4); Platelet Count 138 thou/uL (130-400); RBC Distribution Width 13.7 % (11.5-14.5); White Blood Cell (WBC) Count 17.2 thou/uL (4.8-10.8)
[2021-11-18 06:49] LABS: Anion Gap 15 mmol/L (10-20); BUN (Urea Nitrogen) 27 mg/dL (8.4-25.7); Calc. Creatinine Clearance 58 mL/min (70-130); Calcium 8.5 mg/dL (7.8-10.44); Carbon Dioxide 19 mmol/L (23-31); Chloride 109 mmol/L (98-107); Estimated GFR 53; Glucose 142 mg/dL (83-110); Potassium 4.4 mmol/L (3.5-5.1); Sodium 139 mmol/L (136-145)
[2021-11-18] MEDS ORDERED: Dextrose 5% in Water 1,000 ML IV PRN (07:03)
[2021-11-18] MEDS ORDERED: Dextrose 50% Abboject 50 ML SYRINGE SLOW IVP PRN (07:03)
[2021-11-18 08:27] LABS: Band 5 % (5-11); Lymphocytes 5 % (21-51); MDiff Complete? YES; Monocytes 5 % (0-10); Neutrophil 85 % (42-75); Platelet Morphology Comment Appears Adequate; Polychromasia SLIGHT = 2-3 cells (100X) (0-2/hpf)
[2021-11-18] MEDS ORDERED: Insulin Glargine 30 UNITS/0.3 ML VIAL SC SCH (08:45)
[2021-11-18] MEDS: Aspirin Chewable 81 MG TAB PO SCH (09:13)
[2021-11-18 09:32] LABS: Glucose 169 mg/dL (83-110)
[2021-11-18] MEDS: Citalopram 10 MG TAB PO SCH (10:53)
[2021-11-18] MEDS ORDERED: Insulin Glargine 30 UNITS/0.3 ML VIAL SC PRN (11:17)
[2021-11-18 11:50] LABS: Actual Bicarbonate (HCO3a) 20.7 mEq/L (22-28); Analyzer IN Cardio OR; Base Excess (BEa) -2.7 mEq/L (-2.0 to +3.0); CO2 Tension 31.7 mmHg (35.0-45.0); Calcium, Ionized (arterial) 1.15 mmol/L (1.12-1.30); Hemoglobin (Hb) 12.5 g/dL (14.0-18.0); O2 Tension (PaO2), arterial 295.1 mmHg (> 60.0); Potassium - ABG Lab 3.92 mmol/L (3.70-5.30); pH, Arterial 7.43 (7.35-7.45)
[2021-11-18 11:50] LABS: Actual Bicarbonate (HCO3a) 24.8 mEq/L (22-28); Analyzer IN Cardio OR; Base Excess (BEa) -1.3 mEq/L (-2.0 to +3.0); CO2 Tension 48.5 mmHg (35.0-45.0); Calcium, Ionized (arterial) 1.14 mmol/L (1.12-1.30); Carboxyhemoglobin (COHb) 0.2 gm% (0.0-3.0); Hemoglobin (Hb) 9.8 g/dL (14.0-18.0); O2 Tension (PaO2), arterial 351.4 mmHg (> 60.0); pH, Arterial 7.33 (7.35-7.45)
[2021-11-18 11:50] LABS: Actual Bicarbonate (HCO3a) 24.7 mEq/L (22-28); Analyzer IN Cardio OR; Base Excess (BEa) -0.7 mEq/L (-2.0 to +3.0); CO2 Tension 44.6 mmHg (35.0-45.0); Calcium, Ionized (arterial) 1.12 mmol/L (1.12-1.30); Carboxyhemoglobin (COHb) 0.3 gm% (0.0-3.0); Hemoglobin (Hb) 9.5 g/dL (14.0-18.0); O2 Tension (PaO2), arterial 411.1 mmHg (> 60.0); Potassium - ABG Lab 3.99 mmol/L (3.70-5.30); pH, Arterial 7.36 (7.35-7.45)
[2021-11-18 11:50] LABS: Actual Bicarbonate (HCO3a) 23.2 mEq/L (22-28); Analyzer IN Cardio OR; Base Excess (BEa) -1.2 mEq/L (-2.0 to +3.0); Calcium, Ionized (arterial) 1.21 mmol/L (1.12-1.30); Carboxyhemoglobin (COHb) 0.3 gm% (0.0-3.0); Hemoglobin (Hb) 12.2 g/dL (14.0-18.0); O2 Tension (PaO2), arterial 317.9 mmHg (> 60.0); Potassium - ABG Lab 4.23 mmol/L (3.70-5.30)
[2021-11-18 11:51] LABS: Actual Bicarbonate (HCO3a) 21.9 mEq/L (22-28); Analyzer IN Cardio OR; Base Excess (BEa) -4.2 mEq/L (-2.0 to +3.0); CO2 Tension 43.9 mmHg (35.0-45.0); Calcium, Ionized (arterial) 1.17 mmol/L (1.12-1.30); Carboxyhemoglobin (COHb) 0.2 gm% (0.0-3.0); O2 Tension (PaO2), arterial 270.5 mmHg (> 60.0); Potassium - ABG Lab 3.37 mmol/L (3.70-5.30); pH, Arterial 7.32 (7.35-7.45)
[2021-11-18 11:51] LABS: Actual Bicarbonate (HCO3a) 22.1 mEq/L (22-28); Analyzer IN Cardio OR; CO2 Tension 39.6 mmHg (35.0-45.0); Calcium, Ionized (arterial) 1.19 mmol/L (1.12-1.30); Carboxyhemoglobin (COHb) 0.3 gm% (0.0-3.0); Hemoglobin (Hb) 10.5 g/dL (14.0-18.0); O2 Tension (PaO2), arterial 233.5 mmHg (> 60.0); Potassium - ABG Lab 3.98 mmol/L (3.70-5.30); pH, Arterial 7.37 (7.35-7.45)
[2021-11-18 11:52] LABS: Puncture Site Arterial Line
[2021-11-18 11:52] LABS: Puncture Site Arterial Line
[2021-11-18 11:52] LABS: Puncture Site Arterial Line
[2021-11-18 11:53] LABS: Puncture Site Arterial Line
[2021-11-18 11:53] LABS: Puncture Site Arterial Line
[2021-11-18 11:53] LABS: Puncture Site Arterial Line
[2021-11-18] MEDS: Magnesium 2 GM/50 ML(in water) 2 GM in Premix Bag 1 BAG IVPB SCH (12:19)
[2021-11-18] MEDS: HumaLOG 300 UNITS/3 ML VIAL SC PRN ×2 (17:27→21:25)
[2021-11-18] MEDS: Atorvastatin Calcium 10 MG TAB PO SCH (21:25)
[2021-11-18] MEDS: Famotidine/PF 20 mg/2ml Vial SLOW IVP SCH (21:25)
[2021-11-19 03:11] VITALS: BMI 34.2
[2021-11-19] MEDS: HumaLOG 300 UNITS/3 ML VIAL SC PRN (03:15)
[2021-11-19 04:30] LABS: #Monocytes 1.4 thou/uL (0.11-0.59); #Neutrophils 15.2 thou/uL (1.40-6.50); %Basophils 0.1 % (0.0-1.0); %Eosinophils 0.1 % (0.0-10.0); %Lymphocytes 5.5 % (21.0-51.0); %Monocytes 7.9 % (0.0-10.0); %Neutrophils 86.4 % (42.0-75.0); Hemoglobin 11.6 g/dL (14.0-18.0); Mean Corpuscular HGB CONC 32.5 g/dL (32.0-36.0); Mean Corpuscular Hemoglobin 32.5 pg (27.0-31.0); Mean Platelet Volume 7.9 fL (7.4-10.4); Platelet Count 141 thou/uL (130-400); RBC Distribution Width 13.9 % (11.5-14.5); Red Blood Cell (RBC) Count 3.57 mill/uL (4.70-6.10); White Blood Cell (WBC) Count 17.5 thou/uL (4.8-10.8)
[2021-11-19 04:55] LABS: Anion Gap 15 mmol/L (10-20); BUN (Urea Nitrogen) 32 mg/dL (8.4-25.7); Calc. Creatinine Clearance 50 mL/min (70-130); Calcium 8.5 mg/dL (7.8-10.44); Carbon Dioxide 20 mmol/L (23-31); Chloride 105 mmol/L (98-107); Estimated GFR 46; Glucose 226 mg/dL (83-110); Potassium 4.6 mmol/L (3.5-5.1); Sodium 135 mmol/L (136-145)
[2021-11-19] MEDS ORDERED: Sodium Chloride 0.9% 1,000 ML IV SCH (06:00)
[2021-11-19] MEDS ORDERED: Lidocaine 1% (PF) 30 ML VIAL ONE ×2 (06:50→07:41)
[2021-11-19] MEDS ORDERED: CEFAZOLIN 1 GM VIAL ONE (06:50)
[2021-11-19] MEDS ORDERED: ceFAZolin 2 GM/Dextrose 50 ML IVPB ONE (06:50)
[2021-11-19] MEDS ORDERED: Gentamicin 80 MG/2 ML VIAL ONE (06:50)
[2021-11-19] MEDS ORDERED: Fentanyl 100 MCG/2 ML VIAL ONE (07:26)
[2021-11-19] MEDS ORDERED: Midazolam HCl 2 mg/2 ml Vial ONE (07:26)
[2021-11-19] MEDS ORDERED: Vancomycin 1 GM/200 ML BAG ONE (07:35)
[2021-11-19] MEDS ORDERED: Iopamidol 370 76% 50 ML VIAL FS ONE (08:00)
[2021-11-19] MEDS: Magnesium 2 GM/50 ML(in water) 2 GM in Premix Bag 1 BAG IVPB SCH (09:45)
[2021-11-19] MEDS: Aspirin Chewable 81 MG TAB PO SCH (09:46)
[2021-11-19] MEDS: Amiodarone 200 MG TAB PO SCH ×2 (09:46→21:08)
[2021-11-19] MEDS: Citalopram 10 MG TAB PO SCH (09:50)
[2021-11-19] MEDS ORDERED: Nitroglycerin 0.4 MG TAB (25 Tab Bottle) SL PRN (10:14)
[2021-11-19] MEDS ORDERED: Mineral Oil ENEMA PR PRN (10:14)
[2021-11-19] MEDS ORDERED: Dextrose 50% Abboject 50 ML SYRINGE SLOW IVP PRN (10:30)
[2021-11-19] MEDS ORDERED: Dextrose 5% in Water 1,000 ML IV PRN (10:30)
[2021-11-19] MEDS: Insulin Regular 300 UNITS/3 ML VIAL SC PRN ×3 (11:36→21:09)
[2021-11-19] MEDS: Cephalexin 250 MG CAP PO SCH ×2 (16:04→21:08)
[2021-11-19] MEDS: Bisacodyl 5 MG TAB PO PRN (16:05)
[2021-11-19] MEDS ORDERED: glipiZIDE 10 MG TAB PO SCH (16:30)
[2021-11-19] MEDS: Famotidine 20 MG TAB PO SCH (21:08)
[2021-11-19] MEDS: Atorvastatin Calcium 10 MG TAB PO SCH (21:09)
[2021-11-20] MEDS: Insulin Regular 300 UNITS/3 ML VIAL SC PRN ×3 (05:52→21:29)
[2021-11-20 08:14] LABS: Anion Gap 13 mmol/L (10-20); BUN (Urea Nitrogen) 36 mg/dL (8.4-25.7); Calc. Creatinine Clearance 52 mL/min (70-130); Calcium 8.4 mg/dL (7.8-10.44); Carbon Dioxide 21 mmol/L (23-31); Chloride 107 mmol/L (98-107); Estimated GFR 48; Glucose 169 mg/dL (83-110); Potassium 4.6 mmol/L (3.5-5.1); Sodium 136 mmol/L (136-145)
[2021-11-20] MEDS: Citalopram 10 MG TAB PO SCH (09:38)
[2021-11-20] MEDS: Amiodarone 200 MG TAB PO SCH ×2 (09:38→21:28)
[2021-11-20] MEDS: Famotidine 20 MG TAB PO SCH ×2 (09:38→21:28)
[2021-11-20] MEDS: Furosemide 40 MG TAB PO SCH (09:38)
[2021-11-20] MEDS: Aspirin Chewable 81 MG TAB PO SCH (09:38)
[2021-11-20] MEDS: Polyethylene Glycol 3350 17 GM Packet PO SCH (09:38)
[2021-11-20] MEDS: Cephalexin 250 MG CAP PO SCH ×3 (09:38→21:28)
[2021-11-20] MEDS: glipiZIDE 10 MG TAB PO SCH ×2 (09:39→17:54)
[2021-11-20] MEDS ORDERED: Metoprolol Tartrate 50 MG TAB PO SCH (13:15)
[2021-11-20] MEDS: Bisacodyl 5 MG TAB PO PRN (17:54)
[2021-11-20] MEDS: Atorvastatin Calcium 10 MG TAB PO SCH (21:28)
[2021-11-20] MEDS: Acetaminophen 325 MG TAB PO PRN (22:39)
[2021-11-21] MEDS: glipiZIDE 10 MG TAB PO SCH ×2 (09:30→15:52)
[2021-11-21] MEDS: Cephalexin 250 MG CAP PO SCH ×3 (09:31→21:43)
[2021-11-21] MEDS: Amiodarone 200 MG TAB PO SCH ×2 (09:31→21:43)
[2021-11-21] MEDS: Aspirin Chewable 81 MG TAB PO SCH (09:31)
[2021-11-21] MEDS: Furosemide 40 MG TAB PO SCH (09:32)
[2021-11-21] MEDS: Famotidine 20 MG TAB PO SCH ×2 (09:32→21:43)
[2021-11-21] MEDS: Citalopram 10 MG TAB PO SCH (09:32)
[2021-11-21] MEDS: Polyethylene Glycol 3350 17 GM Packet PO SCH (09:33)
[2021-11-21] MEDS: Insulin Regular 300 UNITS/3 ML VIAL SC PRN ×3 (13:17→21:42)
[2021-11-21] MEDS: Atorvastatin Calcium 10 MG TAB PO SCH (21:43)
[2021-11-21] MEDS: hydrALAZINE 10 MG TAB PO SCH (21:43)
[2021-11-22] MEDS: Aspirin Chewable 81 MG TAB PO SCH (09:31)
[2021-11-22] MEDS: glipiZIDE 10 MG TAB PO SCH ×3 (09:31→16:01)
[2021-11-22] MEDS: Amiodarone 200 MG TAB PO SCH ×2 (09:31→20:32)
[2021-11-22] MEDS: hydrALAZINE 10 MG TAB PO SCH ×2 (09:32→20:32)
[2021-11-22] MEDS: Cephalexin 250 MG CAP PO SCH ×3 (09:32→20:32)
[2021-11-22] MEDS: Polyethylene Glycol 3350 17 GM Packet PO SCH (09:32)
[2021-11-22] MEDS: Citalopram 10 MG TAB PO SCH (09:32)
[2021-11-22] MEDS: Furosemide 40 MG TAB PO SCH (09:32)
[2021-11-22] MEDS: Famotidine 20 MG TAB PO SCH ×2 (09:32→20:32)
[2021-11-22] MEDS: Insulin Regular 300 UNITS/3 ML VIAL SC PRN ×2 (11:27→20:33)
[2021-11-22] MEDS: Acetaminophen 325 MG TAB PO PRN (11:27)
[2021-11-22] MEDS: Atorvastatin Calcium 10 MG TAB PO SCH (20:33)
[2021-11-23 04:44] LABS: #Basophils 0.1 thou/uL (0.0-0.2); #Eosinphils 0.3 thou/uL (0.0-0.7); #Lymphocytes 1.5 thou/uL (1.20-3.40); #Monocytes 1.1 thou/uL (0.11-0.59); #Neutrophils 8.9 thou/uL (1.40-6.50); %Basophils 0.6 % (0.0-1.0); %Eosinophils 2.9 % (0.0-10.0); %Lymphocytes 12.4 % (21.0-51.0); %Monocytes 9.1 % (0.0-10.0); Mean Corpuscular HGB CONC 33.9 g/dL (32.0-36.0); Mean Corpuscular Hemoglobin 33.9 pg (27.0-31.0); Platelet Count 188 thou/uL (130-400); RBC Distribution Width 13.4 % (11.5-14.5); Red Blood Cell (RBC) Count 3.53 mill/uL (4.70-6.10); White Blood Cell (WBC) Count 11.9 thou/uL (4.8-10.8)
[2021-11-23 05:15] LABS: Anion Gap 15 mmol/L (10-20); BUN (Urea Nitrogen) 40 mg/dL (8.4-25.7); Calc. Creatinine Clearance 51 mL/min (70-130); Calcium 8.8 mg/dL (7.8-10.44); Carbon Dioxide 23 mmol/L (23-31); Chloride 105 mmol/L (98-107); Estimated GFR 48; Glucose 149 mg/dL (83-110); Potassium 4.8 mmol/L (3.5-5.1); Sodium 138 mmol/L (136-145)
[2021-11-23] MEDS: Insulin Regular 300 UNITS/3 ML VIAL SC PRN ×3 (06:10→17:27)
[2021-11-23] MEDS ORDERED: Lisinopril 2.5 MG TAB PO SCH (09:00)
[2021-11-23] MEDS: glipiZIDE 10 MG TAB PO SCH ×2 (10:42→15:31)
[2021-11-23] MEDS: hydrALAZINE 10 MG TAB PO SCH ×2 (10:42→21:10)
[2021-11-23] MEDS: Famotidine 20 MG TAB PO SCH ×2 (10:43→21:10)
[2021-11-23] MEDS: Amiodarone 200 MG TAB PO SCH ×2 (10:43→21:10)
[2021-11-23] MEDS: Aspirin Chewable 81 MG TAB PO SCH (10:44)
[2021-11-23] MEDS: Citalopram 10 MG TAB PO SCH (10:44)
[2021-11-23] MEDS: Polyethylene Glycol 3350 17 GM Packet PO SCH (10:44)
[2021-11-23] MEDS: Cephalexin 250 MG CAP PO SCH ×3 (10:44→21:10)
[2021-11-23] MEDS: Furosemide 40 MG TAB PO SCH (10:44)
[2021-11-23] MEDS: Atorvastatin Calcium 10 MG TAB PO SCH (21:10)
[2021-11-24] MEDS: Insulin Regular 300 UNITS/3 ML VIAL SC PRN ×2 (06:50→12:05)
[2021-11-24] MEDS: glipiZIDE 10 MG TAB PO SCH ×2 (09:11→15:49)
[2021-11-24] MEDS: Amiodarone 200 MG TAB PO SCH (09:12)
[2021-11-24] MEDS: Furosemide 40 MG TAB PO SCH (09:13)
[2021-11-24] MEDS: hydrALAZINE 10 MG TAB PO SCH (09:13)
[2021-11-24] MEDS: Citalopram 10 MG TAB PO SCH (09:13)
[2021-11-24] MEDS: Aspirin Chewable 81 MG TAB PO SCH (09:13)
[2021-11-24] MEDS: Famotidine 20 MG TAB PO SCH (09:13)
[2021-11-24] MEDS: Cephalexin 250 MG CAP PO SCH ×2 (09:13→15:48)
[2021-11-24] MEDS: Polyethylene Glycol 3350 17 GM Packet PO SCH (09:13)
[2021-11-24 16:05] VITALS: BP 135/70; TEMP 97.9
[2021-12-04] MEDS ORDERED: Amiodarone 200 MG TAB PO SCH (09:00)
[2021-12-18] MEDS ORDERED: Amiodarone 200 MG TAB PO SCH (09:00)
== END 2021-11-24 20:13 | DRG 236 ==
LOC: SURG A 11-17 05:50 → CCU 11-17 10:30 → 2NO 11-19 13:54
PROVIDERS: ADMIT Thoracic Surgery (Cardiothoracic Vascular Surgery); ATTEND Thoracic Surgery (Cardiothoracic Vascular Surgery)
PROC: 021109W Bypass Coronary Artery, Two Arteries from Aorta with Autologous Venous Tissue, Open Approach (ICD-10-PCS; principal; 2021-11-17)
PROC: 02100Z9 Bypass Coronary Artery, One Artery from Left Internal Mammary, Open Approach (ICD-10-PCS; 2021-11-17)
PROC: 06BQ3ZZ Excision of Left Saphenous Vein, Percutaneous Approach (ICD-10-PCS; 2021-11-17)
PROC: 5A1221Z Performance of Cardiac Output, Continuous (ICD-10-PCS; 2021-11-17)
PROC: 02L70CK Occlusion of Left Atrial Appendage with Extraluminal Device, Open Approach (ICD-10-PCS; 2021-11-17)
PROC: 3E033XZ Introduction of Vasopressor into Peripheral Vein, Percutaneous Approach (ICD-10-PCS; 2021-11-17)
PROC: 0JH606Z Insertion of Pacemaker, Dual Chamber into Chest Subcutaneous Tissue and Fascia, Open Approach (ICD-10-PCS; 2021-11-19)
PROC: 02H63JZ Insertion of Pacemaker Lead into Right Atrium, Percutaneous Approach (ICD-10-PCS; 2021-11-19)
PROC: 02HK3JZ Insertion of Pacemaker Lead into Right Ventricle, Percutaneous Approach (ICD-10-PCS; 2021-11-19)
DX: I25.10 Atherosclerotic heart disease of native coronary artery without angina pectoris (principal); I48.4 Atypical atrial flutter; I49.5 Sick sinus syndrome; I48.0 Paroxysmal atrial fibrillation; E78.00 Pure hypercholesterolemia, unspecified; N40.0 Benign prostatic hyperplasia without lower urinary tract symptoms; N18.30 Chronic kidney disease, stage 3 unspecified; R20.2 Paresthesia of skin; E11.22 Type 2 diabetes mellitus with diabetic chronic kidney disease; I12.9 Hypertensive chronic kidney disease with stage 1 through stage 4 chronic kidney disease, or unspecified chronic kidney disease; F03.90 Unspecified dementia, unspecified severity, without behavioral disturbance, psychotic disturbance, mood disturbance, and anxiety; Z91.19 Patient's noncompliance with other medical treatment and regimen; Z79.899 Other long term (current) drug therapy; Z95.5 Presence of coronary angioplasty implant and graft; Z89.201 Acquired absence of right upper limb, unspecified level; Z87.891 Personal history of nicotine dependence; Z79.01 Long term (current) use of anticoagulants; Z79.84 Long term (current) use of oral hypoglycemic drugs
CPT/HCPCS: 33208; 36415; 36416; 36430; 71045; 80048; 82805; 85025; 85027; 85610; 85730; 86850; 86900; 86901; 93005; 93010; 93798; 94660; 99152; 99153; C1713; C1751; C1785; C1898; J0690; J1100; J1580; J1642; J1644; J1815; J2001; J2150; J2250; J2370; J2440; J2704; J2710; J2720; J3010; J3370; J3475; J3480; J3490; J7050; J7120; P9045; Q0162; Q9967; S0017; S0028